=== PATIENT | male | born 1955 | race Caucasian/White ===

== ENCOUNTER → 2018-03-31 15:07 | Outpatient (CLI) | payer OTHER, SELFPAY ==
[2018-03-31 15:49] LABS: Appearance Urine UA CLEAR; Bilirubin Urine UA NEGATIVE (NEGATIVE); Color Urine UA YELLOW; Glucose Urine UA NEGATIVE (Normal); Ketones Urine UA NEGATIVE (NEGATIVE); Leukocyte Esterase Urine UA NEGATIVE (NEGATIVE); Nitrite Urine UA Negative (Negative); Occult Blood Urine UA TRACE-LYSED (Negative); Protein Urine UA NEGATIVE (Negative); Urobilinogen Urine UA 0.2 E.U./dL (0.2); pH Urine UA 5.5 (4.5-8.0)
[2018-03-31 15:56] LABS: RBC Urine 1-5/HPF (0-5/HPF); WBC Urine 5-10/HPF (0-5/HPF)
[2018-03-31 15:57] LABS: Bacteria Urine Many (>30); Culture Indicated Urine Specimen Cultured
== END ==
PROVIDERS: PCP Family Medicine; Visit Provider Physician Assistant
DX: R31.29 Other microscopic hematuria (principal)
CPT/HCPCS: 81001; 87086

== ENCOUNTER → 2018-05-27 15:41 | Outpatient (CLI) | payer OTHER, SELFPAY ==
[2018-05-27 15:48] LABS: Bacteria Urine None Seen; RBC Urine None Seen (0-5/HPF); WBC Urine None Seen (0-5/HPF)
[2018-05-27 15:54] LABS: Appearance Urine UA CLEAR; Bilirubin Urine UA NEGATIVE (NEGATIVE); Color Urine UA YELLOW; Glucose Urine UA NEGATIVE (Normal); Ketones Urine UA NEGATIVE (NEGATIVE); Leukocyte Esterase Urine UA NEGATIVE (NEGATIVE); Nitrite Urine UA Negative (Negative); Occult Blood Urine UA 1+ (Negative); Protein Urine UA NEGATIVE (Negative); Urobilinogen Urine UA 0.2 E.U./dL (0.2); pH Urine UA 5.5 (4.5-8.0)
[2018-05-27 16:01] LABS: Squamous Epithelial Cell Urine 0-1 /HPF
== END ==
PROVIDERS: PCP Family Medicine; Visit Provider Physician Assistant
DX: R31.9 Hematuria, unspecified (principal)
CPT/HCPCS: 81001

== ENCOUNTER → 2018-09-15 14:50 | Outpatient (CLI) | payer OTHER, SELFPAY ==
--- NOTE | 2018-09-15 | DI.ECHO.S_ITS ---
[place] [facility]---------+ [facility] +---------+ : : [address] : [address] : : : : [id number] : : : : Phone: [phone]---------+ Echocardiogram Report + + :Name: HANANE COBOS Study Date: 09/15/2018 Height: 74 in : :[facility] Weight: 260 lb : : Gender: Male BSA: 2.4 m2 : :: 1955 Age: 63 yrs BP: 150/84 mmHg: :Reason For Study: Aortic, Ascending Aneurysm : : Performed By: Glendy Mejía : :Referring: ZAINAB TURNER G : + + Interpretation Summary The ejection fraction is estimated to be 60-65%. The left atrium is moderately dilated. There is mild to moderate aortic regurgitation. There is a trace or physiologic amount of tricuspid regurgitation. The right ventricular systolic pressure is estimated to be at least 24 mmHg based on an estimated right atrial pressure of 3 mm Hg. The ascending aorta is moderately enlarged.(4.5cm, unchanged from 2016) The aortic root is mildly dilated. Procedure: A two-dimensional transthoracic echocardiogram with color flow and Doppler was performed. The study quality was technically adequate. Comparison is made with the echocardiogram of 06-15-16. The patient was in normal sinus rhythm during the exam. Left Ventricle: The left ventricle is mildly dilated. There is normal left ventricular wall thickness. The ejection fraction is estimated to be 60-65%. Left ventricular wall motion is normal. Diastolic parameters suggest a relaxation abnormality of the left ventricle, consistent with probable normal filling pressures. Right Ventricle: The right ventricle grossly appears normal in size with probable normal systolic function. Atria: The left atrium is moderately dilated. Right atrial size is normal. The interatrial septum is intact with no evidence for an atrial septal defect. Mitral Valve: The mitral valve is normal in structure and function. There is trace mitral regurgitation. Aortic Valve: The aortic valve opens well. The aortic valve is grossly normal. There is no aortic valve stenosis. There is mild to moderate aortic regurgitation. Tricuspid Valve: The tricuspid valve is normal in structure and function. There is a trace or physiologic amount of tricuspid regurgitation. The right ventricular systolic pressure is estimated to be at least 24 mmHg based on an estimated right atrial pressure of 3 mm Hg. Pulmonic Valve: The pulmonic valve is not well visualized. There is trace pulmonic regurgitation. Great Vessels: The aortic root is mildly dilated. The ascending aorta is moderately enlarged. There has been no significant change since the previous study. The IVC is of normal diameter and collapses greater than 50% with a sniff. This suggests a low right atrial pressure of 3 mm Hg. Pericardium/ Pleura There is no pericardial effusion. There is no pleural effusion. MMode/2D Measurements & Calculations LVIDd: 5.8 cm Ao root diam: 4.0 cm LVIDs: 3.7 cm Aortic Jxn: 3.7 cm FS: 34.9 % asc Aorta Diam: 4.4 cm EPSS: 1.4 cm Ao Arch Diam (Prox Trans): 3.6 cm IVSd: 0.99 cm LVPWd: 1.1 cm LV cruz. diameter/BSA (cm/m^2): 2.4 LV sys. diameter/BSA (cm/m^2): 1.5 LA dimension: 3.4 cm RA long axis: 6.4 cm LA A2 area: 33.5 cm2 RA area: 24.4 cm2 LA A4 area: 29.1 cm2 RA vol: 79.2 ml LA length (vol): 6.4 cm RA : 32.6 ml/m2 LA vol: 129.0 ml IVC diam: 1.2 cm LA vol index: 53.1 ml/m2 Doppler Measurements & Calculations Ao V2 max: 154.8 cm/sec AI P1/2t: 723.8 msec Ao V2 mean: 102.2 cm/sec AI dec slope: 187.1 cm/sec2 Ao max P.6 mmHg Ao mean P.8 mmHg Ao V2 VTI: 35.1 cm MV E max braeden: 68.0 cm/sec TR max braeden: 226.9 cm/sec MV A max braeden: 84.9 cm/sec TR max P.6 mmHg MV E/A: 0.80 PA V2 max: 75.4 cm/sec Med Peak E' Braeden: 5.1 cm/sec PA V2 mean: 51.8 cm/sec E/E' med: 13.5 PA mean P.2 mmHg Lat Peak E' Braeden: 8.5 cm/sec PA Accel Time: 0.18 sec E/E' lat: 8.0 E/e' average: 10.7 MV dec time: 0.28 sec MV P1/2t: 82.0 msec MV P1/2t max braeden: 67.6 cm/sec MVA(P1/2t): 2.7 cm2 Reading Physician:10:20 AM
== END ==
PROVIDERS: PCP Family Medicine; Visit Provider Family Medicine
DX: I71.2 Thoracic aortic aneurysm, without rupture (principal); I35.1 Nonrheumatic aortic (valve) insufficiency
CPT/HCPCS: 93306

== ENCOUNTER → 2019-08-08 06:49 | Outpatient (CLI) | payer OTHER, SELFPAY ==
[2019-08-08 08:42] LABS: Alanine Aminotransferase 25 IU/L (<50); Albumin Globulin Ratio 1.5 (1.0-2.8); Alkaline Phosphatase 43 U/L (38-126); Aspartate Aminotransferase 27 IU/L (17-59); BUN Creatinine Ratio 21.7 (6-22); Bilirubin Total 0.7 mg/dL (0.2-1.3); Blood Urea Nitrogen 26 mg/dL (9-20); Calcium 8.9 mg/dL (8.4-10.2); Carbon Dioxide 28 mmol/L (22-32); Chloride 104 mmol/L (98-107); Cholesterol 201 mg/dL (140-199); Estimated Glomerular Filt Rate > 60.0 mL/min (>60); Globulin 2.6 g/dL (1.7-4.1); Glucose 102 mg/dL (80-110); HDL Cholesterol 40 mg/dL (40-60); HEMOLYSIS < 15 (0-50); LDL Cholesterol Calculated 141 mg/dL (<100); Sodium 140 mmol/L (137-145); Total Protein 6.6 g/dL (6.3-8.2); Triglycerides 99 mg/dL (35-150)
[2019-08-08 08:49] LABS: Add Manual Diff / Slide Review NO; Basophils Absolute Auto 0 /uL (0-100); Basophils Percent Auto 0.9 % (0-2); Eosinophils Absolute Auto 200 /uL (0-450); Eosinophils Percent Auto 2.8 % (2-4); Hematocrit 48.6 % (41-53); Hemoglobin 16.6 g/dL (13.5-17.5); Lymphocytes Absolute Auto 1400 /uL (1100-4500); Lymphocytes Percent Auto 24.7 % (25-40); Mean Corpuscular HGB Conc 34.2 % (30-36); Mean Corpuscular Volume 96.5 fL (80-100); Monocytes Absolute Auto 500 /uL (0-900); Monocytes Percent Auto 8.6 % (3-14); Neutrophils Absolute Auto 3500 /uL (1500-7000); Platelet Count 208 X10^3/uL (150-400); Red Blood Cell Count 5.04 X10^6/uL (4.5-5.9); White Blood Cell Count 5.5 X10^3/uL (4.5-11.0)
[2019-08-08 09:09] LABS: TSH w/ Reflex to FT4 5.74 uIU/mL (0.47-4.68)
[2019-08-08 09:45] LABS: Free T4, Direct Thyroxine 0.81 ng/dL (0.78-2.19)
== END ==
PROVIDERS: PCP Family Medicine; Visit Provider Family Medicine
DX: I10 Essential (primary) hypertension (principal); E78.5 Hyperlipidemia, unspecified; J44.9 Chronic obstructive pulmonary disease, unspecified; R31.9 Hematuria, unspecified
CPT/HCPCS: 36415; 80053; 80061; 84439; 84443; 85025

== ENCOUNTER → 2019-09-07 09:04 | Outpatient (CLI) | payer OTHER, SELFPAY ==
--- NOTE | 2019-09-07 | DI.ECHO.S_ITS ---
[place] +---------+ [facility] +---------+ : : [address] : [address] : : : : [id number] : : : : Phone: [phone] +---------+ Echocardiogram Report + + :Name: HANANE COBOS Study Date: 09/07/2019 Height: 74 in : :[facility] Weight: 275 lb : : Gender: Male BSA: 2.5 m2 : :: 1955 Age: 64 yrs BP: 146/86 mmHg: :Reason For Study: Aortic, Ascending Aneurysm : : Performed By: [facility] [place] Staff : :Referring: ZAINAB TURNER G : + + Interpretation Summary 1) Normal left ventricular size with mildly reduced systolic function (EF 45- 50%). 2) The right ventricle is normal size. Right ventricular systolic function is mildly reduced. 3) The left atrium is moderately dilated. 4) There is mild to moderate aortic regurgitation. 5) The ascending aorta is moderately enlarged at 4.5cm. 6) Hypertension present during the study (BP 146/86mmHg). 7) Compared to the Echo done 09/15/2018, LV function has decreased from normal to mildly reduced on this study. Procedure: A two-dimensional transthoracic echocardiogram with color flow and Doppler was performed. The study quality was technically adequate. Prior echo performed on 09/15/18. The patient was in atrial fibrillation with heart rates between 115 bpm during the exam. Left Ventricle: The left ventricle is normal in size. There is mild concentric left ventricular hypertrophy. Left ventricular systolic function is mildly reduced. The ejection fraction is estimated to be 45-50%. Right Ventricle: The right ventricle is normal size. Right ventricular systolic function is mildly reduced. Atria: The left atrium is moderately dilated. The right atrium is mildly dilated. The interatrial septum is intact with no evidence for an atrial septal defect. Mitral Valve: The mitral valve leaflets appear mildly thickened, but open well. There is no mitral regurgitation noted. Aortic Valve: The aortic valve opens well. There is mild aortic valve sclerosis. The aortic valve is not well visualized. There is no aortic valve stenosis. There is mild to moderate aortic regurgitation. Tricuspid Valve: The tricuspid valve is normal in structure and function. There is trace tricuspid regurgitation. Pulmonary artery pressures cannot be estimated because of the lack of a measurable TR jet velocity. Pulmonic Valve: The pulmonic valve is not well visualized. There is trace pulmonic regurgitation. Great Vessels: The aortic root is mildly dilated. The ascending aorta is moderately enlarged. The pulmonary artery is normal size. The IVC is dilated (diameter is greater than 2.1 cm) yet it collapses greater than 50% with a sniff. This suggests a right atrial pressure of 8 mm Hg. Pericardium/ Pleura There is no pericardial effusion. There is no pleural effusion. MMode/2D Measurements & Calculations LVIDd: 4.7 cm LVOT diam: 2.4 cm LVIDs: 3.1 cm Ao root diam: 3.9 cm FS: 33.9 % EPSS: 0.83 cm IVSd: 1.4 cm LVPWd: 1.3 cm LV cruz. diameter/BSA (cm/m^2): 1.9 LV sys. diameter/BSA (cm/m^2): 1.2 LA A2 area: 26.7 cm2 RA long axis: 6.7 cm LA A4 area: 36.0 cm2 RA area: 23.3 cm2 LA length (vol): 7.0 cm RA vol: 69.0 ml LA vol: 117.0 ml RA : 27.7 ml/m2 LA vol index: 47.0 ml/m2 TAPSE: 1.8 cm Doppler Measurements & Calculations Ao V2 max: 101.4 cm/sec LVOT Max Braeden: 71.6 cm/sec Ao V2 mean: 71.5 cm/sec LV V1 max P.1 mmHg Ao max P.1 mmHg LV V1 VTI: 15.7 cm Ao mean P.4 mmHg YRN(I,D): 3.6 cm2 Ao V2 VTI: 19.0 cm YRN(V,D): 3.1 cm2 sev ratio: 0.82 YRN indexed to BSA (cm^2/m^2): 1.5 MV E max braeden: 65.1 cm/sec PA V2 max: 41.9 cm/sec Med Peak E' Braeden: 6.6 cm/sec PA V2 mean: 30.8 cm/sec E/E' med: 9.9 PA mean P.43 mmHg Lat Peak E' Braeden: 9.7 cm/sec PA Accel Time: 0.12 sec E/E' lat: 6.7 E/e' average: 8.3 SV(LVOT): 69.4 ml Reading Physician:09:18 AM
== END ==
PROVIDERS: Family Provider Internal Medicine Cardiovascular Disease; PCP Family Medicine; Visit Provider Family Medicine
DX: I35.1 Nonrheumatic aortic (valve) insufficiency (principal); I71.2 Thoracic aortic aneurysm, without rupture; I10 Essential (primary) hypertension
CPT/HCPCS: 93306

== ENCOUNTER 2019-09-17 | Observation (INO) | payer OTHER, SELFPAY ==
[2019-09-17] VITALS (25 sets, daily range): BP systolic 120–152; BP diastolic 74–112; PULSE 94–150; RESP 13–27; TEMP 36.4–38.1; O2SAT 89–95; BMI 35.5
--- NOTE | 2019-09-17 00:16 | DI.RAD.S_ITS ---
PROCEDURE: XR CHEST 1V INDICATIONS: Shortness of breath TECHNIQUE: One view of the chest was acquired. COMPARISON: None. FINDINGS: Surgical changes and devices: None. Lungs and pleura: Lungs are clear. No pleural effusions or pneumothorax. Mediastinum: Mediastinal contours appear normal. Heart size is normal. Bones and chest wall: No suspicious bony lesions. Overlying soft tissues appear unremarkable. IMPRESSION: No acute cardiopulmonary findings. Dictated by: Elif Hill M.D. on 09/17/2019 at 6:42 Approved by: Elif Hill M.D. on 09/17/2019 at 6:42
--- NOTE | 2019-09-17 00:17 | ED.GENADULT ---
HPI - General Adult General Chief complaint: Shortness of Breath/Dyspnea Stated complaint: difficulty breathing Time Seen by Provider: 09/17/19 00:01 Source: patient and family Mode of arrival: Family Vehicle Limitations: no limitations History of Present Illness HPI narrative: Patient is a 64-year-old male. Approximately 1 month ago was diagnosed with atrial fibrillation. He is not currently on anticoagulation for this. Is not currently on any rate/rhythm control medications. Earlier this month he had an echocardiogram performed here at this hospital for the evaluation of this. Yesterday he also finished a 24 hour Holter monitor. He does not have the results of this back. 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 He states that 2 days ago started having ?the cried ?this is what he describes as sore throat and sinus congestion not feeling well. He states that this evening he was laying in bed when he had to sit up with shortness of breath. No chest pain. Does not feel like his heart is beating fast. He does not feel his atrial fibrillation. Does have lower extremity swelling with this is not new. No nausea vomiting. No abdominal pain. Has not tried anything for symptoms prior to arrival. Related Data Home Medications Medication Instructions Recorded Confirmed acetaminophen [Acephen] #0 07/31/16 aspirin 81 mg PO QDAY #0 07/31/16 carvedilol [Coreg] 25 mg PO BID #0 07/31/16 cetirizine 10 mg PO QDAY #0 07/31/16 felodipine 10 mg PO QDAY #0 07/31/16 fluticasone propionate 1 spray QDAY #0 07/31/16 lisinopril 40 mg PO QDAY #0 07/31/16 Allergies Allergy/AdvReac Type Severity Reaction Status Date / Time No Known Drug Allergies Allergy Verified 09/17/19 00:32 Review of Systems Constitutional Constitutional: Reports fatigue and Denies fever(s) Cardiovascular Cardiovascular: Denies chest pain, Denies diaphoresis, Denies syncope, Denies rapid heart rate, Denies irregular heart rhythm, Reports leg edema and Reports dyspnea Respiratory Respiratory: Reports chest congestion, Reports cough and Reports dyspnea Gastrointestinal Gastrointestinal: Denies abdominal pain, Denies nausea and Denies vomiting Genitourinary Genitourinary: Denies dysuria Musculoskeletal Musculoskeletal: Denies arthralgias Integumentary/Breasts Skin/Breast: Denies rash Neurologic Neurologic: Denies behavioral changes and Denies syncope Psychiatric Psychiatric: Denies behavioral changes Endocrine Endocrine: Reports fatigue Hematologic/Lymphatic Hematologic/Lymphatic: Denies easy bleeding and Denies easy bruising Patient History Medical History Atrial fibrillation (Acute) Hypertension (Acute) Renal cancer (Acute) Surgical History History of nephrectomy (Acute) Social History Smoking Status: Former smoker Smoking Status: Former smoker alcohol intake frequency: 3 or more drinks per day Alcohol type: beer Substance Use Type: does not use Exam Initial Vital Signs Initial Vital Signs: Vital Signs Temperature 99.9 F H 09/17/19 00:08 Pulse Rate 138 H 09/17/19 00:08 Respiratory Rate 24 09/17/19 00:08 Blood Pressure 152/112 H 09/17/19 00:08 Pulse Oximetry 91 09/17/19 00:08 Const General: cooperative, comfortable and well developed Orientation: alert, awake and oriented x3 HENMT Head: normal to inspection and normocephalic Resp Effort & Inspection: normal respiratory effort, cough, not labored and tachypneic Auscultation: wheezes Cardio Rate: tachycardic Rhythm: abnormal rhythm irregularly irregular GI Inspection: non-distended Palpation: soft Skin Lesions: no lesions Rashes: no rashes Neuro General: alert, awake and oriented x3 Cognition: normal cognition Speech: speech normal Extrem General: normal to inspection and capillary refill normal Psych Appearance: grossly normal and well kempt Scores CHADS-VASc Congestive heart failure: yes Hypertension: yes Age 75 years or older: no Diabetes mellitus: no Stroke, TIA, or TE: no Vascular disease: no Age 65 to 74 years: no Sex category (female): Male CHADS-VASc Score: 2 GCS [place] coma scale eye opening: Spontaneous Stacie coma scale verbal response: Orientated Stacie coma scale motor response: Obey commands [place] coma scale total score: 15 PERC Score Age greater than or equal to 50 years: Yes Heart rate greater than or equal to 100 bpm: Yes Room Air O2 Sat less than 95%: Yes Unilateral leg swelling: No Recent trauma or surgery: No Hemoptysis: No Prior PE or DVT: No Hormone Use: No Total PERC Score: 3 Course Orders Ordered: ED Orders 09/17/19 00:15 B Type Natriuretic Peptide Stat Complete Blood Count AUTO DIFF Stat Comprehensive Metabolic Panel Stat Lipase Stat Partial Thromboplastin Time Stat Procalcitonin Stat Prothrombin Time INR Stat Troponin I Stat 09/17/19 00:16 XR chest 1V Stat EKG-12 Lead Stat 09/17/19 00:28 Influenza A & B (PCR) Stat 09/17/19 01:42 CT angio chest PE protocol Stat Sodium Chloride (Normal Saline 0.9%) 1,000 mls @ 150 mls/hr IV CONT KAYLA Last Admin: 09/17/19 00:49 Dose: 150 mls/hr Documented by: SABINA Discontinued Medications Albuterol (Ventolin) 2.5 mg INH NOW ONE Stop: 09/17/19 00:25 Last Admin: 09/17/19 00:32 Dose: 2.5 mg Documented by: GEMMA Albuterol (Ventolin) 2.5 mg INH NOW ONE Stop: 09/17/19 00:45 Last Admin: 09/17/19 00:53 Dose: 2.5 mg Documented by: GEMMA Albuterol (Ventolin) 2.5 mg INH NOW ONE Stop: 09/17/19 01:14 Last Admin: 09/17/19 01:16 Dose: 2.5 mg Documented by: GEMMA Azithromycin (Zithromax) 500 mg PO NOW ONE Stop: 09/17/19 01:14 Last Admin: 09/17/19 01:19 Dose: 500 mg Documented by: SABINA Diltiazem HCl (Cardizem) 10 mg IV NOW ONE Stop: 09/17/19 00:38 Last Admin: 09/17/19 00:49 Dose: 10 mg Documented by: SABINA Methylprednisolone (Solu-Medrol 125 Mg Vial) 125 mg IV NOW ONE Stop: 09/17/19 01:14 Last Admin: 09/17/19 01:19 Dose: 125 mg Documented by: SABINA Vital Signs Vital signs: Vital Signs - 8 hr 09/17/19 00:08 09/17/19 00:30 09/17/19 00:32 Temperature 99.9 F H Pulse Rate 138 H 139 H 150 H Respiratory Rate 24 22 20 Blood Pressure 152/112 H Blood Pressure [Right Arm] 142/102 H Pulse Oximetry 91 93 93 09/17/19 00:53 09/17/19 00:57 09/17/19 01:01 Temperature Pulse Rate 120 H 105 H 98 H Respiratory Rate 20 13 Blood Pressure Blood Pressure [Right Arm] 138/85 Pulse Oximetry 93 92 09/17/19 01:16 09/17/19 03:03 09/17/19 03:06 Temperature Pulse Rate 104 H 132 H 123 H Respiratory Rate 16 16 16 Blood Pressure Blood Pressure [Right Arm] 138/88 138/88 Pulse Oximetry 94 90 L 89 L 09/17/19 03:38 09/17/19 04:12 Temperature Pulse Rate 122 H 120 H Respiratory Rate 27 H 24 Blood Pressure Blood Pressure [Right Arm] 137/93 H 137/92 H Pulse Oximetry 93 91 Medical Decision Making Medical Records Medical records reviewed: Yes I reviewed the patient's medical records. Lab Data Lab results reviewed: Yes I reviewed the patient's lab results. Result diagrams: 09/17/19 00:15 09/17/19 00:15 Labs: Lab Results 09/17/19 09/17/19 09/17/19 Range/Units 00:15 00:15 00:15 WBC 5.9 (4.5-11.0) X10^3/uL RBC 5.41 (4.5-5.9) X10^6/uL Hgb 17.9 H (13.5-17.5) g/dL Hct 52.0 (41-53) % MCV 96.2 (80-100) fL MCH 33.1 (26-34) PG MCHC 34.4 (30-36) % RDW 13.9 (11.6-14.8) % Plt Count 173 (150-400) X10^3/uL Neut % (Auto) 80.2 H (50-75) % Lymph % (Auto) 8.8 L (25-40) % Crenshaw % (Auto) 5.4 (3-14) % Eos % (Auto) 3.3 (2-4) % Baso % (Auto) 2.3 H (0-2) % Neut # (Auto) 4700 (9320-6409) /uL Lymph # (Auto) 500 L (3695-4066) /uL Crenshaw # (Auto) 300 (0-900) /uL Eos # (Auto) 200 (0-450) /uL Baso # (Auto) 100 (0-100) /uL PT 12.1 (10.1-12.7) SECONDS INR 1.0 (0.9-1.3) APTT 40 H (26.4-36.2) SECONDS Sodium 138 (137-145) mmol/L Potassium 3.7 (3.4-5.1) mmol/L Chloride 99 (98-107) mmol/L Carbon Dioxide 25 (22-32) mmol/L BUN 19 (9-20) mg/dL Creatinine 1.30 H (0.66-1.25) mg/dL Estimated GFR 55.9 L (>60) mL/min BUN/Creatinine Ratio 14.6 (6-22) Glucose 101 (80-110) mg/dL Calcium 9.2 (8.4-10.2) mg/dL Total Bilirubin 0.9 (0.2-1.3) mg/dL AST 69 H (17-59) IU/L ALT 53 H (<50) IU/L Alkaline Phosphatase 65 (38-126) U/L Troponin I < 0.012 (0.01-0.034) ng/mL B-Natriuretic Peptide 175 H (<100) Total Protein 8.2 (6.3-8.2) g/dL Albumin 4.8 (3.5-5.0) g/dL Globulin 3.4 (1.7-4.1) g/dL Albumin/Globulin Ratio 1.4 (1.0-2.8) Lipase 49 (23-300) U/L Procalcitonin (<0.5) ng/mL Influenza A (RT-PCR) (NEGATIVE) Influenza B (RT-PCR) (NEGATIVE) 09/17/19 09/17/19 Range/Units 00:15 00:28 WBC (4.5-11.0) X10^3/uL RBC (4.5-5.9) X10^6/uL Hgb (13.5-17.5) g/dL Hct (41-53) % MCV (80-100) fL MCH (26-34) PG MCHC (30-36) % RDW (11.6-14.8) % Plt Count (150-400) X10^3/uL Neut % (Auto) (50-75) % Lymph % (Auto) (25-40) % Crenshaw % (Auto) (3-14) % Eos % (Auto) (2-4) % Baso % (Auto) (0-2) % Neut # (Auto) (4770-9609) /uL Lymph # (Auto) (5964-9618) /uL Crenshaw # (Auto) (0-900) /uL Eos # (Auto) (0-450) /uL Baso # (Auto) (0-100) /uL PT (10.1-12.7) SECONDS INR (0.9-1.3) APTT (26.4-36.2) SECONDS Sodium (137-145) mmol/L Potassium (3.4-5.1) mmol/L Chloride (98-107) mmol/L Carbon Dioxide (22-32) mmol/L BUN (9-20) mg/dL Creatinine (0.66-1.25) mg/dL Estimated GFR (>60) mL/min BUN/Creatinine Ratio (6-22) Glucose (80-110) mg/dL Calcium (8.4-10.2) mg/dL Total Bilirubin (0.2-1.3) mg/dL AST (17-59) IU/L ALT (<50) IU/L Alkaline Phosphatase (38-126) U/L Troponin I (0.01-0.034) ng/mL B-Natriuretic Peptide (<100) Total Protein (6.3-8.2) g/dL Albumin (3.5-5.0) g/dL Globulin (1.7-4.1) g/dL Albumin/Globulin Ratio (1.0-2.8) Lipase (23-300) U/L Procalcitonin < 0.05 (<0.5) ng/mL Influenza A (RT-PCR) Flu a negative (NEGATIVE) Influenza B (RT-PCR) Flu b negative (NEGATIVE) Imaging Data Echo: Radiologist's impression: [address] [address] Echocardiography Report Signed Patient: Hanane Cobos WMR#: [id number] : 7Acct:[id number] Age/Sex: 64 / MDate of Service: 09/07/19 Loc: ECHO Accession Number: [id number] Procedure: EC echo doppler complete Ordering Provider: Zainab Turner [facility] +---------+ Hospital +---------+ : : [address] : [place] [address] : : : : [id number] : : : : Phone: [phone]+ Echocardiogram Report + + :Name: HANANE COBOS Study Date: 09/07/2019 Height: 74 in : :[facility] Weight: 275 lb : : Gender: Male BSA: 2.5 m2 : :: 1955 Age: 64 yrs BP: 146/86 mmHg: :Reason For Study: Aortic, Ascending Aneurysm : : Performed By: [facility] Staff : :Referring: ZAINAB TURNER : + + Interpretation Summary 1) Normal left ventricular size with mildly reduced systolic function (EF 45- 50%). 2) The right ventricle is normal size. Right ventricular systolic function is mildly reduced. 3) The left atrium is moderately dilated. 4) There is mild to moderate aortic regurgitation. 5) The ascending aorta is moderately enlarged at 4.5cm. 6) Hypertension present during the study (BP 146/86mmHg). 7) Compared to the Echo done 09/15/2018, LV function has decreased from normal to mildly reduced on this study. Procedure: A two-dimensional transthoracic echocardiogram with color flow and Doppler was performed. The study quality was technically adequate. Prior echo performed on 09/15/18. The patient was in atrial fibrillation with heart rates between 115 bpm during the exam. Left Ventricle: The left ventricle is normal in size. There is mild concentric left ventricular hypertrophy. Left ventricular systolic function is mildly reduced. The ejection fraction is estimated to be 45-50%. Right Ventricle: The right ventricle is normal size. Right ventricular systolic function is mildly reduced. Atria: The left atrium is moderately dilated. The right atrium is mildly dilated. The interatrial septum is intact with no evidence for an atrial septal defect. Mitral Valve: The mitral valve leaflets appear mildly thickened, but open well. There is no mitral regurgitation noted. Aortic Valve: The aortic valve opens well. There is mild aortic valve sclerosis. The aortic valve is not well visualized. There is no aortic valve stenosis. There is mild to moderate aortic regurgitation. Tricuspid Valve: The tricuspid valve is normal in structure and function. There is trace tricuspid regurgitation. Pulmonary artery pressures cannot be estimated because of the lack of a measurable TR jet velocity. Pulmonic Valve: The pulmonic valve is not well visualized. There is trace pulmonic regurgitation. Great Vessels: The aortic root is mildly dilated. The ascending aorta is moderately enlarged. The pulmonary artery is normal size. The IVC is dilated (diameter is greater than 2.1 cm) yet it collapses greater than 50% with a sniff. This suggests a right atrial pressure of 8 mm Hg. Pericardium/ Pleura There is no pericardial effusion. There is no pleural effusion. MMode/2D Measurements & Calculations LVIDd: 4.7 cm LVOT diam: 2.4 cm LVIDs: 3.1 cm Ao root diam: 3.9 cm FS: 33.9 % EPSS: 0.83 cm IVSd: 1.4 cm LVPWd: 1.3 cm LV cruz. diameter/BSA (cm/m^2): 1.9 LV sys. diameter/BSA (cm/m^2): 1.2 LA A2 area: 26.7 cm2 RA long axis: 6.7 cm LA A4 area: 36.0 cm2 RA area: 23.3 cm2 LA length (vol): 7.0 cm RA vol: 69.0 ml LA vol: 117.0 ml RA : 27.7 ml/m2 LA vol index: 47.0 ml/m2 TAPSE: 1.8 cm Doppler Measurements & Calculations Ao V2 max: 101.4 cm/sec LVOT Max Braeden: 71.6 cm/sec Ao V2 mean: 71.5 cm/sec LV V1 max P.1 mmHg Ao max P.1 mmHg LV V1 VTI: 15.7 cm Ao mean P.4 mmHg YRN(I,D): 3.6 cm2 Ao V2 VTI: 19.0 cm YRN(V,D): 3.1 cm2 sev ratio: 0.82 YRN indexed to BSA (cm^2/m^2): 1.5 MV E max braeden: 65.1 cm/sec PA V2 max: 41.9 cm/sec Med Peak E' Braeden: 6.6 cm/sec PA V2 mean: 30.8 cm/sec E/E' med: 9.9 PA mean P.43 mmHg Lat Peak E' Braeden: 9.7 cm/sec PA Accel Time: 0.12 sec E/E' lat: 6.7 E/e' average: 8.3 SV(LVOT): 69.4 ml Reading Physician:09:18 AM Chest x-ray: Radiologist's impression: Ground-glass intra pulmonary opacifications centered within the bilateral perihilar airspace is. Mild emphysematous changes. Alveolitis versus subsegmental atelectasis CT scan - chest: Radiologist's impression: Despite exam quality take radiation, there is no evidence for gross pulmonary embolism that is likely to be clinically significant. Ascending aortic aneurysm. No evidence of rupture. Nonspecific intrapulmonary airspace disease. Likely pneumonia versus edema. ECG Data Attestation: I personally reviewed and interpreted this ECG as follows: Prior ECG tracings: not available for review Interpretation: Atrial fibrillation Ventricular rate of 134 Normal axis QRS 153 milliseconds Right bundle branch block No ST T wave changes MDM Narrative Medical decision making narrative: Patient arrived hypoxic in the mid 80s. This improved with oxygen by nasal cannula. He did have wheezing and coarse breath sounds bilaterally. Was given multiple nebulizer treatments which did seem to improve his symptoms however when he was taken off his oxygen just laying in bed his saturations dropped to the mid 80s. He was given steroids. Given his symptoms, cough, fatigue, hypoxia, there was some concern for pneumonia. He was given azithromycin. He does not meet criteria for healthcare associated. Chest x-ray did not show any definitive pneumonia. Given the fact the patient was still hypoxic despite nebulizer treatments felt was important to obtain a CTA to evaluate for any pulmonary embolism. There's no pulmonary embolism however does have a right middle lobe airspace disease which could potentially represent a pneumonia. This is however the setting of a lack of leukocytosis, lack of a fever, lack of an elevation is procalcitonin. He does not carry a diagnosis of COPD. Patient was also in atrial fibrillation with RVR upon arrival. He was diagnosed with this approximately 1 month ago. The echocardiogram provided in this note is for reference purposes only. It was not obtained during this ED visit. He was given Cardizem which did improve his heart rate however after a period of time and did rise again maintaining in the 120s. I did discuss the case with Dr. 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 He recommended that if the heart rate stayed in the 120s or less that he would treat the underlying lung issues to see if this does not improve his atrial fibrillation. I discussed the case with the night nurse practitioner who accepts the patient for further evaluation. Discussed the admission and the findings of his labs and radiologic studies with the patient and his . They both expressed understanding and agreement. Discharge Plan Departure Patient Disposition: Admitted as Observation Clinical Impression: Hypoxia Reactive airway disease Qualifiers: Asthma severity: mild Asthma persistence: unspecified Qualified Code(s): J45.909 - Unspecified asthma, uncomplicated Atrial fibrillation Qualifiers: Atrial fibrillation type: other persistent Qualified Code(s): I48.19 - Other persistent atrial fibrillation Admit Date/Time: 09/17/19 04:30 Admit Provider: Stefan Emery
[2019-09-17] MEDS: ALBUTEROL 2.5 MG/3 ML NEB (ADULT) INH ×3 (00:32→01:16)
[2019-09-17 00:33] LABS: Prothrombin Time 12.1 SECONDS (10.1-12.7)
[2019-09-17 00:36] LABS: PTT Partial Thromboplastin Tim 40 SECONDS (26.4-36.2)
[2019-09-17 00:39] LABS: Alanine Aminotransferase 53 IU/L (<50); Albumin 4.8 g/dL (3.5-5.0); Albumin Globulin Ratio 1.4 (1.0-2.8); Alkaline Phosphatase 65 U/L (38-126); Aspartate Aminotransferase 69 IU/L (17-59); BUN Creatinine Ratio 14.6 (6-22); Bilirubin Total 0.9 mg/dL (0.2-1.3); Blood Urea Nitrogen 19 mg/dL (9-20); Calcium 9.2 mg/dL (8.4-10.2); Carbon Dioxide 25 mmol/L (22-32); Chloride 99 mmol/L (98-107); Estimated Glomerular Filt Rate 55.9 mL/min (>60); Globulin 3.4 g/dL (1.7-4.1); Glucose 101 mg/dL (80-110); HEMOLYSIS < 15 (0-50); Lipase 49 U/L (23-300); Potassium 3.7 mmol/L (3.4-5.1); Sodium 138 mmol/L (137-145); Total Protein 8.2 g/dL (6.3-8.2)
[2019-09-17 00:43] LABS: Add Manual Diff / Slide Review NO; Basophils Absolute Auto 100 /uL (0-100); Basophils Percent Auto 2.3 % (0-2); Eosinophils Absolute Auto 200 /uL (0-450); Eosinophils Percent Auto 3.3 % (2-4); Hemoglobin 17.9 g/dL (13.5-17.5); Lymphocytes Absolute Auto 500 /uL (1100-4500); Lymphocytes Percent Auto 8.8 % (25-40); Mean Corpuscular HGB Conc 34.4 % (30-36); Mean Corpuscular Hemoglobin 33.1 PG (26-34); Mean Corpuscular Volume 96.2 fL (80-100); Monocytes Absolute Auto 300 /uL (0-900); Monocytes Percent Auto 5.4 % (3-14); Neutrophils Absolute Auto 4700 /uL (1500-7000); Neutrophils Percent Auto 80.2 % (50-75); Platelet Count 173 X10^3/uL (150-400); Red Blood Cell Count 5.41 X10^6/uL (4.5-5.9); Red Cell Distribution Width 13.9 % (11.6-14.8); White Blood Cell Count 5.9 X10^3/uL (4.5-11.0)
[2019-09-17] MEDS: dilTIAZem 5 MG/ML SDV 10 MG IV (00:49)
[2019-09-17] MEDS: SODIUM CHLORIDE 0.9% 1,000 ML 150 ML IV (00:49)
[2019-09-17 00:51] LABS: B Type Natriuretic Peptide 175 (<100); Troponin I < 0.012 ng/mL (0.01-0.034)
[2019-09-17 00:54] LABS: Procalcitonin < 0.05 ng/mL (<0.5)
--- NOTE | 2019-09-17 01:03 | PC.NURSE ---
Pt remains in a figb HR 90's-100's after IVP diltiazem
[2019-09-17 01:04] LABS: Influenza A - CEPHEID Flu A NEGATIVE (NEGATIVE); Influenza B - CEPHEID Flu B NEGATIVE (NEGATIVE)
[2019-09-17] MEDS: AZITHROMYCIN 250 MG TABLET 500 MG PO (01:19)
[2019-09-17] MEDS: methylPREDNISolone 125 MG/2 ML VIAL IV (01:19)
--- NOTE | 2019-09-17 01:28 | PC.NURSE ---
Pt reports he feels better after nebs.
--- NOTE | 2019-09-17 01:42 | DI.CT.S_ITS ---
PROCEDURE: CT ANGIO CHEST PE PROTOCOL INDICATIONS: Chest pain, shortness of breath, tachycardia TECHNIQUE: After the administration of intravenous contrast, 2 mm thick sections acquired from the pulmonary apices to the posterior costophrenic angles. 3-dimensional maximum intensity projection (MIP) coronal and sagittal reformats were then acquired through the thorax. For radiation dose reduction, the following was used: automated exposure control, adjustment of mA and/or kV according to patient size. COMPARISON: None. FINDINGS: Image quality: Excellent. Pulmonary arteries: Pulmonary arteries are normal in size, and demonstrate no intraluminal filling defects to suggest central pulmonary embolism. Lungs and pleura: Patchy pulmonary opacities are present within the right middle lobe. Trace pulmonary opacities are also present at the lingular base. There is soft tissue thickening around the right middle lobe bronchi. There is a 7 mm diameter pulmonary nodule within the right lower lobe (series 6, image 253). A 5 mm right lower lobe pulmonary nodule is also visualized (series 6, image 277). An 8mm pulmonary nodule is present within the lateral right lower lobe (series 6, image to 34). An 8mm pulmonary nodule is present within the left lower lobe (series 6, image to 68). A questionable nodule versus pulmonary scar or basilar atelectasis is present at the lateral left lung base measuring 1.0 cm in diameter (series 6, image 304). Mediastinum: Heart size is normal, without pericardial effusion. No mediastinal or hilar adenopathy. The ascending thoracic aorta measures 4.6 cm in diameter. Esophagus is normal in caliber, without hiatal hernia. Bones and chest wall: No suspicious bony lesions. Ribs and thoracic spine appear intact throughout. Thyroid gland is unremarkable. No axillary or supraclavicular adenopathy. Abdomen: Visualized upper abdominal solid organs appear normal in the early arterial phase of enhancement. IMPRESSION: 1. No acute pulmonary embolus. 2. Patchy air space opacity suspicious for acute aspiration/infection. Short interval followup is recommended with resolution of the patient's symptoms to ensure there is no underlying pulmonary pathology. 3. Multiple pulmonary nodules measuring up to 9-10 mm in diameter. Please see followup guidelines below. Followup CT in 3-6 months recommended. 4. Annuloaortic ectasia. Nonemergent cardiology consultation recommended. These findings are concordant with the overnight interpretation. Fleischner Society criteria for SOLID lung nodule followup. Nodule size (mm)Low-risk patientHigh-risk patient<6 (single or multiple)No routine followup.Optional CT at 12 months. 6-8 (single or multiple)CT at 6-12 months, then optional CT at 18-24 mo.CT at 6-12 months, then CT at 18-24 months. >8 (single)CT at 3 months, PET-CT, or biopsy. Same as for low-risk pts. >8 (multiple)CT at 3-6 months, then optional CT at 18-24 mo.CT at 3-6 months, then CT at 18-24 months. Fleischner Society criteria for SUB-SOLID lung nodule followup. Solitary pure ground-glass nodules<6 mm (ground glass or part solid)No followup needed. 6 mm or larger (ground glass)CT at 6-12 months to confirm persistence, then CT every 2 years until 5 years.6 mm or larger (part solid)CT at 3-6 months to confirm persistence, then annual CT until 5 years if unchanged and solid component remains <6 mm. Multiple sub-solid nodules<6 mmCT at 3-6 months, then CT consider at 2 & 4 years for high risk patients. [address] at 3-6 months. Subsequent management based on most suspicious lesions. Recommendations do not apply to lung cancer screening, patients with immunosuppression, or patients with known primary cancer. Dictated by: Elif Hill M.D. on 09/17/2019 at 6:49 Approved by: Elif Hill M.D. on 09/17/2019 at 7:07
[2019-09-17] MEDS: ASPIRIN 81 MG CHEW TAB PO (07:36)
[2019-09-17] MEDS: HEPARIN 5,000 UNIT/ML VIAL 5000 UNIT SUBCUT ×2 (07:36→20:40)
[2019-09-17] MEDS: LISINOPRIL 20 MG TABLET 40 MG PO (07:36)
[2019-09-17] MEDS: carvediloL 25 MG TABLET PO (07:36)
[2019-09-17] MEDS: METOPROLOL TARTRATE 5 MG/5 ML INJ IV ×3 (08:30→10:16)
[2019-09-17] MEDS: ALBUTEROL/IPRATROPIUM 3 ML AMPUL INH ×5 (08:45→23:05)
--- NOTE | 2019-09-17 11:05 | PC.NURSE ---
Addendum entered by Anabella Larsen R.N. 09/17/19 14:03: Pt received scheduled metoprolol PO per emar, HR remaining in the 100-128 bpm range with occ. increases to 130s (unsustained). Dr. Beltran updated and order obtained for IV metoprolol prn if HR sustains over 120s bpm. Pt denies any chest pain, SOB, dizziness at this time. Original Note: PATIENT OFFERS NO COMPLAINTS. DENIES SOB AT THIS TIME. 94% ON 2L/NC. LUNGS CLEAR. INTERMITT PRODUCTIVE COUGH. FACIAL FLUSHING. MD WAS NOTIFIED OF AFIB RVR 120'S TO 130'S BY FLOAT NURSE, ANABELLA THIS AM. NEW ORDERS PER MD. SEE EMAR. HR NOW MOSTLY 100'S WITH OCCASIONAL JUMPS INTO 120'S BUT NOT SUSTAINED. ANABELLA TAKING OVER CARE, REPORT GIVEN.
--- NOTE | 2019-09-17 11:57 | P.HP_ITS ---
History of Present Illness History of Present Illness Date Patient Seen: 09/17/19 Chief complaint: difficulty breathing Narrative: Patient is a 64-year-old male with a history of atrial fibrillation, hypertension the patient is a 64-year-old male with a history of atrial fibrillation, hypertension, obstructive sleep apnea remote history of renal cancer and a history of COPD who was in his usual state of health until 3 days prior to admission. Patient states he came down with a ?cried. He describes having a cough, shortness of breath, wheezing, and difficulty sleeping. Patient states that last night he developed significant coughing shortness of breath such that he could not catch his breath. He has been under the care of a lunchroom attendant and had an echocardiogram which showed a mil dly reduced ejection fraction of 40-45%, a Holter monitor which confirmed atrial fibrillation. His Coreg was increased to 37.5. Patient turned in his Holter monitor recently as well. In any event the patient presented to the hospital with increasing shortness of breath. He was noted to be hypoxic. He was taken for CT angio to rule out pulmonary embolus. CT angio was negative for PE, there was some streaking suggestive of possible aspiration or pneumonia. And pulmonary nodules which were felt to be old. Patient had influenza a and B which were negative. He was started empirically on azithromycin and admitted to the hospital for treatment. Since admission the patient has been noted to remain in atrial fibrillation, his heart rate has been in the 120s. The patient is anxious to discharge home. Patient History Medical History (Updated 09/17/19 @ 12:03 by Poornima Beltran MD) Atrial fibrillation (Acute) Hypertension (Acute) Obstructive sleep apnea (Acute) Renal cancer (Acute) Surgical History History of nephrectomy (Acute) Family & Social History Family History (Updated 09/17/19 @ 12:04 by Poornima Beltran MD) Mother Atrial fibrillation Daughter Supraventricular tachycardia Social History: household members spouse Prior Living Arrangements House Safety & Behavioral: Feels Safe in Current Yes Environment Been Physically Hurt or No Threatened By a Person Suicidal Ideation Description None Suicide Plan Description No Plan Tobacco & Substance use: Tobacco type cigarettes Smoking Status Former smoker Smoking packs per day 2 alcohol intake frequency 3 or more drinks per day Substance Use Type does not use Meds Home Medications and Allergies Home Medications Medication Instructions Recorded Confirmed Type aspirin 81 mg PO QDAY #0 07/31/16 09/17/19 History carvedilol [Coreg] 37.5 mg PO BID #0 07/31/16 09/17/19 History cetirizine 10 mg PO QDAY #0 07/31/16 09/17/19 History felodipine 10 mg PO QDAY #0 07/31/16 09/17/19 History lisinopril 40 mg PO QDAY #0 07/31/16 09/17/19 History acetaminophen [Tylenol] 650 mg PO Q4-6H PRN 09/17/19 09/17/19 History cholecalciferol (vitamin D3) 2,000 unit PO DAILY 09/17/19 09/17/19 History [Vitamin D3] hydrochlorothiazide 12.5 mg PO DAILY 09/17/19 09/17/19 History Allergies Allergy/AdvReac Type Severity Reaction Status Date / Time No Known Drug Allergies Allergy Verified 09/17/19 00:32 Review of Systems Review of Systems Narrative: The patient describes shortness of breath cough and wheezing is noted in the HPI. He also reports some orthopnea and pedal edema. He denies any palpitations. He has no headache blurred vision or double vision. He denies any joint pains or rashes. He has not had a productive cough. He has had no hemoptysis. He denies any chest pain. He does not have any palpitations. He has had no dysuria hematuria or pyuria. No nausea vomiting or diarrhea. All other review of systems are negative. Exam Vital Signs (past 8 hours): - 09/17/19 04:12 09/17/19 05:23 09/17/19 07:40 Temperature 100.5 F H 98.6 F Pulse Rate 120 H 117 H 124 H Respiratory Rate 24 18 18 Blood Pressure 123/74 134/82 Blood Pressure [Right Arm] 137/92 H Pulse Oximetry 91 92 94 09/17/19 09:03 09/17/19 09:47 09/17/19 10:09 Temperature Pulse Rate 124 H 111 H 118 H Respiratory Rate 18 Blood Pressure 120/90 124/79 Blood Pressure [Right Arm] Pulse Oximetry 93 93 09/17/19 10:15 09/17/19 10:25 Temperature Pulse Rate 112 H 110 H Respiratory Rate Blood Pressure 129/86 125/76 Blood Pressure [Right Arm] Pulse Oximetry Oxygen Delivery Method Room Air,Nasal Cannula Oxygen Flow Rate 2 Narrative Exam Narrative: Pleasant gentleman resting comfortably in no obvious distress HEENT: Normocephalic atraumatic, sclerae anicteric, oropharynx is clear, neck is supple there is no JVD Lungs: Decreased breath sounds, scattered bibasilar crackles, expiratory whe ezing is noted Cardiac exam: Irregularly irregular, normal S1-S2, 2/6 systolic ejection murmur Abdomen: Soft nontender nondistended, small ventral hernia noted, no hepatosplenomegaly noted, no board-like rigidity, no palpable mass Extremities: Trace edema Skin exam: Bilateral varicosities noted Neuro exam: Nonfocal Psychiatric exam: Patient is awake alert and appropriate, answers questions a ppropriately, no hallucinations, no delusions, no tics noted. Objective Labs Result Diagrams: 09/17/19 00:15 09/17/19 00:15 Labs: Laboratory Results - last 24 hr 09/17/19 09/17/19 09/17/19 00:15 00:15 00:15 WBC 5.9 RBC 5.41 Hgb 17.9 H Hct 52.0 MCV 96.2 MCH 33.1 MCHC 34.4 RDW 13.9 Plt Count 173 Neut % (Auto) 80.2 H Lymph % (Auto) 8.8 L [place] % (Auto) 5.4 Eos % (Auto) 3.3 Baso % (Auto) 2.3 H Neut # (Auto) 4700 Lymph # (Auto) 500 L [place] # (Auto) 300 Eos # (Auto) 200 Baso # (Auto) 100 PT 12.1 INR 1.0 APTT 40 H Sodium 138 Potassium 3.7 Chloride 99 Carbon Dioxide 25 BUN 19 Creatinine 1.30 H Estimated GFR 55.9 L BUN/Creatinine Ratio 14.6 Glucose 101 Calcium 9.2 Total Bilirubin 0.9 AST 69 H ALT 53 H Alkaline Phosphatase 65 Troponin I < 0.012 B-Natriuretic Peptide 175 H Total Protein 8.2 Albumin 4.8 Globulin 3.4 Albumin/Globulin Ratio 1.4 Lipase 49 Procalcitonin Influenza A (RT-PCR) Influenza B (RT-PCR) 09/17/19 09/17/19 00:15 00:28 WBC RBC Hgb Hct MCV MCH MCHC RDW Plt Count Neut % (Auto) Lymph % (Auto) [place] % (Auto) Eos % (Auto) Baso % (Auto) Neut # (Auto) Lymph # (Auto) [place] # (Auto) Eos # (Auto) Baso # (Auto) PT INR APTT Sodium Potassium Chloride Carbon Dioxide BUN Creatinine Estimated GFR BUN/Creatinine Ratio Glucose Calcium Total Bilirubin AST ALT Alkaline Phosphatase Troponin I B-Natriuretic Peptide Total Protein Albumin Globulin Albumin/Globulin Ratio Lipase Procalcitonin < 0.05 Influenza A (RT-PCR) Flu a negative Influenza B (RT-PCR) Flu b negative Assessment & Plan Assessment & Plan narrative: Impression 1. Acute hypoxemic respiratory failure, present on admission -patient reports a URI, influenza a and B are negative -CT angio of the chest reveals no evidence of pulmonary embolus, mild streaky opacities noted suggestive of aspiration verses early pneumonia, pulmonary nodules noted which are likely old -patient has a diagnosis of COPD, he has greater than a 40 pack year history of smoking, previously not on treatment for this -patient continues to exhibit wheezing and has required oxygen as his O2 sat was noted to be 89% at 3:00 a.m. -plan will continue IV Solu-Medrol, albuterol Atrovent nebulizers, steroid nebulizer, and azithromycin as ordered -will check respiratory failure panel 2. Atrial fibrillation, persistent, present on admission -patient with a rapid AFib and a rapid ventricular response rate, he was previously on Coreg which has been continued, heart rate remains elevated. Suspect his heart rate is elevated related to his underlying primary pulmonary process. Goals at this time will be to control his respiratory status and hopefully his heart rate will improve. He received 3 doses of IV Lopressor with minimal improvement. May need to start him on scheduled metoprolol 50 Q 6 for improved heart rate during this process, will defer anticoagulation at this time, patient to follow-up with his lunchroom attendant Dr. sarabjit Calles as an outpatient 3. History of obstructive sleep apnea, not on CPAP, will continue to monitor. This may explain hypoxia in the middle of the night 4. Hypertension, continue lisinopril, may need to hold full O2 pain given the need for rate control. 5. DVT prophylaxis, Lovenox, Patient is a full code will Note that his record accordingly Patient will likely be here less than 48 hours and therefore will be admitted under observation.
[2019-09-17] MEDS: METOPROLOL IR 50 MG TABLET PO ×2 (12:54→17:44)
[2019-09-17] MEDS: methylPREDNISolone 125 MG/2 ML VIAL 60 MG IV ×2 (12:55→20:40)
--- NOTE | 2019-09-17 14:26 | CM.IDA ---
Initial DCP Assessment Note: Pt is a 64 yo male, resident of [facility]. Pt admitted for cardiac w/u and is likely heading home today. PCP: New Reeder Payer: [employer]ost[employer] Met w/pt and his dtr at bedside to explain SW role. Pt was resting in bed but did state he felt confident about his return home w/spouse and family to assist as needed. Pt denies any DC needs from this CAR REPAIRER LORRAINE Gamez
[2019-09-17 15:19] LABS: Procalcitonin < 0.05 ng/mL (<0.5)
[2019-09-17 15:25] LABS: Adenovirus Not Detected (Not Detect); Bordetella pertussis Not Detected (Not Detect); Chlamydophila pneumoniae Not Detected (Not Detect); Coronavirus 229E Not Detected (Not Detect); Coronavirus HKU1 Not Detected (Not Detect); Coronavirus NL 63 Not Detected (Not Detect); Coronavirus OC43 Not Detected (Not Detect); Human Metapneumovirus Detected (Not Detect); Human Rhinovirus/Enterovirus Not Detected (Not Detect); Influenza A Not Detected (Not Detect); Influenza B Not Detected (Not Detect); Mycoplasma pneumoniae Not Detected (Not Detect); Parainfluenza Virus 1 Not Detected (Not Detect); Parainfluenza Virus 2 Not Detected (Not Detect); Parainfluenza Virus 3 Not Detected (Not Detect); Parainfluenza Virus 4 Not Detected (Not Detect); Respiratory Syncytial Virus Not Detected (Not Detect)
--- NOTE | 2019-09-17 16:57 | PM.EVENT ---
Event Note Date Patient Seen: 09/17/19 Event Note: Respiratory panel positive for brown virus, repeat procalcitonin negative. Patient very likely has a viral infection no evidence of bacterial pneumonia.
[2019-09-17] MEDS: BUDESONIDE 0.5 MG/2 ML NEB INH (19:12)
[2019-09-18] MEDS: METOPROLOL IR 50 MG TABLET PO ×3 (00:34→10:42)
[2019-09-18 00:35] VITALS: BP 143/90; PULSE 110; RESP 20; TEMP 36.3; O2SAT 91
[2019-09-18] MEDS: ALBUTEROL/IPRATROPIUM 3 ML AMPUL INH ×3 (02:54→10:16)
[2019-09-18 02:57] VITALS: PULSE 109; RESP 16; O2SAT 92
[2019-09-18] MEDS: methylPREDNISolone 125 MG/2 ML VIAL 60 MG IV (04:14)
[2019-09-18 05:38] VITALS: BP 136/89; PULSE 105; RESP 19; TEMP 37.1; O2SAT 94
[2019-09-18 05:40] LABS: Add Manual Diff / Slide Review NO; Basophils Absolute Auto 0 /uL (0-100); Basophils Percent Auto 0.3 % (0-2); Eosinophils Absolute Auto 0 /uL (0-450); Hematocrit 45.5 % (41-53); Hemoglobin 15.4 g/dL (13.5-17.5); Lymphocytes Absolute Auto 500 /uL (1100-4500); Lymphocytes Percent Auto 7.8 % (25-40); Mean Corpuscular HGB Conc 33.8 % (30-36); Mean Corpuscular Volume 97.6 fL (80-100); Monocytes Absolute Auto 300 /uL (0-900); Monocytes Percent Auto 5.7 % (3-14); Neutrophils Absolute Auto 5000 /uL (1500-7000); Neutrophils Percent Auto 86.2 % (50-75); Platelet Count 157 X10^3/uL (150-400); Red Blood Cell Count 4.67 X10^6/uL (4.5-5.9); Red Cell Distribution Width 13.5 % (11.6-14.8); White Blood Cell Count 5.8 X10^3/uL (4.5-11.0)
[2019-09-18 05:50] LABS: Blood Urea Nitrogen 20 mg/dL (9-20); Calcium 8.4 mg/dL (8.4-10.2); Carbon Dioxide 29 mmol/L (22-32); Chloride 103 mmol/L (98-107); Estimated Glomerular Filt Rate > 60.0 mL/min (>60); Glucose 163 mg/dL (80-110); HEMOLYSIS 19 (0-50); Potassium 4.5 mmol/L (3.4-5.1); Sodium 139 mmol/L (137-145)
[2019-09-18 06:07] LABS: Procalcitonin < 0.05 ng/mL (<0.5)
[2019-09-18] MEDS: LEVOTHYROXINE 50 MCG TABLET PO (06:19)
[2019-09-18] MEDS: BUDESONIDE 0.5 MG/2 ML NEB INH (06:22)
[2019-09-18 06:24] VITALS: PULSE 96; RESP 20; O2SAT 93
[2019-09-18 09:00] VITALS: PULSE 118; RESP 20; O2SAT 92
[2019-09-18] MEDS: AZITHROMYCIN 250 MG TABLET 500 MG PO (09:03)
[2019-09-18] MEDS: ASPIRIN 81 MG CHEW TAB PO (09:03)
[2019-09-18 09:04] VITALS: BP 131/91; PULSE 114
[2019-09-18] MEDS: LISINOPRIL 20 MG TABLET 40 MG PO (09:04)
[2019-09-18] MEDS: HEPARIN 5,000 UNIT/ML VIAL 5000 UNIT SUBCUT (09:04)
--- NOTE | 2019-09-18 10:11 | CM.DANOTE ---
DCP/Assessment: Reviewed chart. Patient is a 64yr old male admitted to [facility] under OBS status with SOB. PCP listed is Dr. Reeder. Primary payor is 1)[facility]. Attempted to meet with patient this AM. Dr. Miranda and respiratory with patient at time of visit. Patient ambulating in the maria independently. It is anticipated that patient will d/c home today or tomorrow. Dr. Miranda watching patient's 02 saturations as well as heart rate. No anticipated d/c needs identified at this time. P: Home when stable. CM team to continue to follow. LORRAINE Smith Discharge Planning/Care Management CM Discharge Assessment Start: 09/18/19 10:06 Freq: Status: Active Protocol: Document 09/18/19 10:06 KJS (Rec: 09/18/19 10:11 KJS [id number]) Discharge Planning Assessment Assigned Agricultural Scientist LORRAINE Smith Contact Information Glendy [place] (spouse) [phone] Advance Directives? No Advance Directives on File No History Provided By Patient,Medical Record Prior Living Arrangements House Household Members spouse Type of transporation used prior to Drives own vehicle admit Willing to Return to Facility? Yes Independent with ADL's Yes Is patient alert and oriented? Yes Barriers to Discharge No Discharge Plan Home Transportation Arrangement Family to provide transport. Whiteboard Updated in Patient Room with Yes name and ext. # of Agricultural Scientist Review Status In Process Next Review Type Continued Stay Review
--- NOTE | 2019-09-18 10:43 | PC.NURSE ---
Dr. Miranda ordered/requested that noon time metoprolol dosing be given to patient now prior to discharge.
--- NOTE | 2019-09-18 10:44 | PM.DS.1 ---
History of Present Illness History of Present Illness Chief complaint: difficulty breathing Narrative: Patient is a 64-year-old male with a history of atrial fibrillation, hypertension the patient is a 64-year-old male with a history of atrial fibrillation, hypertension, obstructive sleep apnea remote history of renal cancer and a history of COPD who was in his usual state of health until 3 days prior to admission. Patient states he came down with a ?cried. He describes having a cough, shortness of breath, wheezing, and difficulty sleeping. Patient states that last night he developed significant coughing shortness of breath such that he could not catch his breath. He has been under the care of a cloth shader and had an echocardiogram which showed a mil dly reduced ejection fraction of 40-45%, a Holter monitor which confirmed atrial fibrillation. His Coreg was increased to 37.5. Patient turned in his Holter monitor recently as well. In any event the patient presented to the hospital with increasing shortness of breath. He was noted to be hypoxic. He was taken for CT angio to rule out pulmonary embolus. CT angio was negative for PE, there was some streaking suggestive of possible aspiration or pneumonia. And pulmonary nodules which were felt to be old. Patient had influenza a and B which were negative. He was started empirically on azithromycin and admitted to the hospital for treatment. Since admission the patient has been noted to remain in atrial fibrillation, his heart rate has been in the 120s. The patient is anxious to discharge home. Discharge Providers Provider Date of admission: 09/17/19 04:30 Discharge Date: 09/18/19 Primary care physician: New Reeder MD Discharge provider: Enrique Miranda MD Summary Hospital Course Discharge Diagnosis: 1. Acute exacerbation of COPD 2. Chronic atrial fibrillation with RVR 3. Obstructive sleep apnea 4. Hypertension Hospital Course: Patient was admitted to hospital observation for COPD exacerbation. CT angiogram was negative for PE or pneumonia. He was treated with nebulizers, IV Solu-Medrol, started on Zithromax. He tested negative for influenza but respiratory panel did, positive for brown virus. He had mild hypoxia with O2 sat 88-90% on room air. This a.m. his respiratory symptoms are much improved and lungs are clear on exam. O2 sat is 90% to 92% on room air and remains above 88% with walking. He has not previously been on any chronic inhaler therapy. He is discharged on 1 more day of Zithromax for anti-inflammatory therapy, prednisone for 4 days, and albuterol MDI. He recently saw Dr. Miller for outpatient cardiology evaluation of atrial fibrillation which is recent diagnosis for him. Outpatient echo did day prior to admission showed LVEF 60-65%, no significant valvular disease. His carvedilol had been increased to 37.5 mg b.i.d.. Patient's heart rate remained elevated during his admission with ventricular rate in the 120s at rest and up to 140 with activity. Because of his COPD we decided to switch him from carvedilol to metoprolol 150 mg b.i.d. which may be better tolerated. We also stopped aspirin and started him on Eliquis for AFib anticoagulation. His insurance coverage of anticoagulation drugs is unknown. Patient instructed to remain on aspirin if insurance does not cover Eliquis until he can go on anticoagulant therapy covered by his health plan. He has follow-up cardiology appointment on October 03. Status at Discharge Cognitive/behavioral status at discharge: oriented Functional status at discharge: independent ambulation Overall status at discharge: patient is back to baseline Time Spent with Patient Time spent: Greater than 30 minutes Exam Vital Signs (past 8 hours): - 09/18/19 02:57 09/18/19 05:38 09/18/19 06:24 Temperature 98.7 F Pulse Rate 109 H 105 H 96 H Respiratory Rate 16 19 20 Blood Pressure 136/89 Pulse Oximetry 92 94 93 09/18/19 09:04 09/18/19 10:31 Temperature Pulse Rate 114 H 118 H Respiratory Rate 20 Blood Pressure 131/91 H Pulse Oximetry 92 Oxygen Delivery Method Room Air Oxygen Flow Rate 3 Objective Labs Result Diagrams: 09/18/19 05:15 09/18/19 05:15 Labs: Laboratory Results - last 24 hr 09/17/19 09/17/19 09/18/19 13:00 14:22 05:15 WBC 5.8 RBC 4.67 Hgb 15.4 Hct 45.5 MCV 97.6 MCH 33.0 MCHC 33.8 RDW 13.5 Plt Count 157 Neut % (Auto) 86.2 H Lymph % (Auto) 7.8 L [place] % (Auto) 5.7 Eos % (Auto) 0.0 L Baso % (Auto) 0.3 Neut # (Auto) 5000 Lymph # (Auto) 500 L [place] # (Auto) 300 Eos # (Auto) 0 Baso # (Auto) 0 Sodium Potassium Chloride Carbon Dioxide BUN Creatinine Estimated GFR BUN/Creatinine Ratio Glucose Calcium Procalcitonin < 0.05 Chlamy pneumoniae PCR Not detected Adenovirus (PCR) Not detected B.parapertussis DNA PCR Not detected Coronavirus OC43 (PCR) Not detected Coronavirus HKU1 (PCR) Not detected Coronavirus 229E (PCR) Not detected Coronavirus NL63 (PCR) Not detected Human Metapneumovir PCR Detected H Influenza Type A (PCR) Not detected Influenza Type B (PCR) Not detected M. pneumoniae (PCR) Not detected Parainfluenza 1 (PCR) Not detected Parainfluenza 2 (PCR) Not detected Parainfluenza 3 (PCR) Not detected Parainfluenza 4 (PCR) Not detected RSV (PCR) Not detected Entero/Rhino (PCR) Not detected 09/18/19 09/18/19 05:15 05:15 WBC RBC Hgb Hct MCV MCH MCHC RDW Plt Count Neut % (Auto) Lymph % (Auto) [place] % (Auto) Eos % (Auto) Baso % (Auto) Neut # (Auto) Lymph # (Auto) [place] # (Auto) Eos # (Auto) Baso # (Auto) Sodium 139 Potassium 4.5 Chloride 103 Carbon Dioxide 29 BUN 20 Creatinine 1.00 Estimated GFR > 60.0 BUN/Creatinine Ratio 20.0 Glucose 163 H Calcium 8.4 Procalcitonin < 0.05 Chlamy pneumoniae PCR Adenovirus (PCR) B.parapertussis DNA PCR Coronavirus OC43 (PCR) Coronavirus HKU1 (PCR) Coronavirus 229E (PCR) Coronavirus NL63 (PCR) Human Metapneumovir PCR Influenza Type A (PCR) Influenza Type B (PCR) M. pneumoniae (PCR) Parainfluenza 1 (PCR) Parainfluenza 2 (PCR) Parainfluenza 3 (PCR) Parainfluenza 4 (PCR) RSV (PCR) Entero/Rhino (PCR) Discharge Plan Discharge Plan Patient Disposition: Home Discharge orders & Medications Prescriptions: New albuterol sulfate 90 mcg/actuation HFA aerosol inhaler 2 puff INHALATION Q4H PRN (Reason: shortness of breath) Qty: 8.5 RF: 0 prednisone 50 mg tablet 50 mg PO DAILY Qty: 4 RF: 0 azithromycin 500 mg tablet 500 mg PO DAILY 1 Days RF: 0 Eliquis 5 mg tablet 5 mg PO BID Qty: 60 RF: 0 metoprolol tartrate 100 mg tablet 150 mg PO BID Qty: 90 RF: 0 Continued felodipine 10 MG tablet extended release 24 hr 10 mg PO QDAY Qty: 0 RF: 0 lisinopril 20 MG tablet 40 mg PO QDAY Qty: 0 RF: 0 cetirizine 10 MG tablet 10 mg PO QDAY Qty: 0 RF: 0 acetaminophen [Tylenol] 325 mg Capsule 650 mg PO Q4-6H PRN (Reason: pain) RF: 0 hydrochlorothiazide 12.5 mg Tablet 12.5 mg PO DAILY RF: 0 cholecalciferol (vitamin D3) [Vitamin D3] 2,000 unit Tablet 2,000 unit PO DAILY RF: 0 zolpidem [Ambien] 10 mg Tablet 10 mg PO PRN PRN (Reason: Insomnia) RF: 0 Discontinued carvedilol [Coreg] 25 MG tablet 37.5 mg PO BID Qty: 0 RF: 0 aspirin 81 MG tablet,chewable 81 mg PO QDAY Qty: 0 RF: 0 Follow up/Referrals: New Reeder MD [Primary Care Provider] - Diet/Activity/Treatments Diet: Diet as Tolerated Visit Report/Discharge Packet Instructions: DI for Atrial Fibrillation, Metoprolol, Azithromycin, Apixaban Discharge Data Primary Care Provider: New Reeder Attending Provider: Stefan Emery Admit Date/Time: 09/17/19 04:30
--- NOTE | 2019-09-18 11:40 | PC.NURSE ---
Per [facility] pharmacy prior authorization is required from [facility] for ordered blood thinner. Dr. Miranda notified, he states he already discussed back up plan with patient prior to his leaving that he is to take aspirin and follow up with his primary care doctor as scheduled to discuss further anticoagulation options.
== END 2019-09-18 11:51 | disposition home or self-care (01) ==
LOC: ED 04:02 → AC 04:32
PROVIDERS: Internal Medicine; Admitting Provider Nurse Practitioner Gerontology; Emergency Provider Emergency Medicine; Family Provider Internal Medicine Cardiovascular Disease; PCP Family Medicine; Visit Provider Nurse Practitioner Gerontology
DX: J44.1 Chronic obstructive pulmonary disease with (acute) exacerbation (principal); J12.3 Human metapneumovirus pneumonia; Z87.891 Personal history of nicotine dependence; I10 Essential (primary) hypertension; I48.19 Other persistent atrial fibrillation; G47.33 Obstructive sleep apnea (adult) (pediatric)
CPT/HCPCS: 36415; 71045; 71275; 80048; 80053; 83690; 83880; 84145; 84484; 85025; 85610; 85730; 87502; 87633; 93005; 94640; 94660; 94762; 96361; 96372; 96374; 96375; 96376; 99285; G0378; J1644; J2930; J7613; Q9967

== ENCOUNTER → 2019-10-26 10:21 | Outpatient (CLI) | payer OTHER, SELFPAY ==
[2019-09-17 05:06] VITALS: BMI 35.5
--- NOTE | 2019-11-04 10:16 | P.PFT.S_ITS ---
Pulmonary Function Test Referral & Results Date Patient Seen: 10/26/19 Requesting provider: New Reeder Results: The spirometry demonstrates an FVC of 3.25 L which is 60% of predicted. The FEV1 was measured at 2.08 L which is 51% of predicted. The FEV1/FVC ratio was 64 which is 85% of predicted. Following the administration of bronchodilator there was no significant change. Lung volumes show an SVC of 3.3 L which is 63% of predicted. The diffusing capacity was measured at 20.11 which is 53% of predicted. No hemoglobin value was provided, so no correction for potential anemia could be made, if appropriate. The maximum voluntary ventilation was reduced Interpretation: This study demonstrates moderately severe obstructive lung disease based on reduction in FEV1 without evidence of significant benefit following bronchodilator There is also mild restrictive lung disease present based on reduction SVC There is also a significant reduction in diffusing capacity suggesting sign ificant disease at the capillary alveolar level Altogether this is consistent with a diagnosis of COPD
== END ==
PROVIDERS: Family Provider Internal Medicine Cardiovascular Disease; PCP Family Medicine; Visit Provider Family Medicine
DX: J44.9 Chronic obstructive pulmonary disease, unspecified (principal); I48.91 Unspecified atrial fibrillation; I71.2 Thoracic aortic aneurysm, without rupture
CPT/HCPCS: 94060; 94726; 94729

== ENCOUNTER → 2019-12-28 06:56 | Outpatient (CLI) | payer OTHER, SELFPAY ==
[2019-09-17 05:06] VITALS: BMI 35.5
[2019-12-28 07:39] LABS: Add Manual Diff / Slide Review NO; Basophils Absolute Auto 100 /uL (0-100); Eosinophils Absolute Auto 100 /uL (0-450); Hemoglobin 17.5 g/dL (13.5-17.5); Lymphocytes Absolute Auto 1800 /uL (1100-4500); Lymphocytes Percent Auto 27.2 % (25-40); Mean Corpuscular HGB Conc 33.6 % (30-36); Mean Corpuscular Hemoglobin 32.4 PG (26-34); Mean Corpuscular Volume 96.5 fL (80-100); Monocytes Absolute Auto 700 /uL (0-900); Monocytes Percent Auto 9.9 % (3-14); Neutrophils Absolute Auto 4000 /uL (1500-7000); Neutrophils Percent Auto 59.9 % (50-75); Platelet Count 190 X10^3/uL (150-400); Red Blood Cell Count 5.39 X10^6/uL (4.5-5.9); Red Cell Distribution Width 13.4 % (11.6-14.8); White Blood Cell Count 6.7 X10^3/uL (4.5-11.0)
[2019-12-28 07:53] LABS: BUN Creatinine Ratio 15.6 (6-22); Blood Urea Nitrogen 21 mg/dL (9-20); Calcium 9.1 mg/dL (8.4-10.2); Carbon Dioxide 27 mmol/L (22-32); Chloride 104 mmol/L (98-107); Cholesterol 152 mg/dL (140-199); Estimated Glomerular Filt Rate 53.6 mL/min (>60); Glucose 102 mg/dL (80-110); HDL Cholesterol 39 mg/dL (40-60); HEMOLYSIS < 15 (0-50); LDL Cholesterol Calculated 86 mg/dL (<100); Potassium 3.7 mmol/L (3.4-5.1); Sodium 140 mmol/L (137-145); Triglycerides 133 mg/dL (35-150)
== END ==
PROVIDERS: Family Provider Internal Medicine Cardiovascular Disease; PCP Family Medicine; Referring Provider Internal Medicine Cardiovascular Disease; Visit Provider Internal Medicine Cardiovascular Disease
DX: I10 Essential (primary) hypertension (principal)
CPT/HCPCS: 36415; 80048; 80061; 85025

== ENCOUNTER → 2020-05-15 06:59 | Outpatient (CLI) | payer OTHER, SELFPAY ==
[2019-09-17 05:06] VITALS: BMI 35.5
[2020-05-15 09:12] LABS: BUN Creatinine Ratio 18.7 (6-22); Blood Urea Nitrogen 26 mg/dL (9-20); Carbon Dioxide 25 mmol/L (22-32); Chloride 103 mmol/L (98-107); Estimated Glomerular Filt Rate 51.8 mL/min (>60); Glucose 96 mg/dL (80-110); HEMOLYSIS 45 (0-50); Potassium 4.4 mmol/L (3.4-5.1); Sodium 138 mmol/L (137-145)
== END ==
PROVIDERS: Internal Medicine Cardiovascular Disease; Family Provider Internal Medicine Cardiovascular Disease; PCP Family Medicine; Referring Provider Family Medicine; Visit Provider Family Medicine
DX: I48.91 Unspecified atrial fibrillation (principal)
CPT/HCPCS: 36415; 80048

== ENCOUNTER → 2021-01-17 07:17 | Outpatient (CLI) | payer OTHER, SELFPAY ==
[2019-09-17 05:06] VITALS: BMI 35.5
[2021-01-17 08:02] LABS: Add Manual Diff / Slide Review NO; Basophils Absolute Auto 0 /uL (0-100); Eosinophils Absolute Auto 200 /uL (0-450); Eosinophils Percent Auto 3.7 % (2-4); Hematocrit 45.6 % (41-53); Hemoglobin 15.5 g/dL (13.5-17.5); Lymphocytes Absolute Auto 1400 /uL (1100-4500); Lymphocytes Percent Auto 28.4 % (25-40); Mean Corpuscular Hemoglobin 33.1 PG (26-34); Mean Corpuscular Volume 97.2 fL (80-100); Monocytes Absolute Auto 400 /uL (0-900); Neutrophils Absolute Auto 2800 /uL (1500-7000); Neutrophils Percent Auto 57.9 % (50-75); Platelet Count 194 X10^3/uL (150-400); Red Cell Distribution Width 14.2 % (11.6-14.8); White Blood Cell Count 4.8 X10^3/uL (4.5-11.0)
[2021-01-17 08:19] LABS: Alanine Aminotransferase 26 IU/L (<50); Albumin 3.9 g/dL (3.5-5.0); Albumin Globulin Ratio 1.3 (1.0-2.8); Alkaline Phosphatase 43 U/L (38-126); Aspartate Aminotransferase 36 IU/L (17-59); Bilirubin Total 0.4 mg/dL (0.2-1.3); Blood Urea Nitrogen 18 mg/dL (9-20); Calcium 9.6 mg/dL (8.4-10.2); Carbon Dioxide 32 mmol/L (22-32); Chloride 101 mmol/L (98-107); Cholesterol 208 mg/dL (140-199); Estimated Glomerular Filt Rate > 60.0 mL/min (>60); Globulin 2.9 g/dL (1.7-4.1); Glucose 101 mg/dL (80-110); HDL Cholesterol 61 mg/dL (40-60); HEMOLYSIS < 15 (0-50); LDL Cholesterol Calculated 127 mg/dL (<100); Potassium 3.8 mmol/L (3.4-5.1); Sodium 139 mmol/L (137-145); Total Protein 6.8 g/dL (6.3-8.2); Triglycerides 101 mg/dL (35-150); Uric Acid 9.1 mg/dL (3.5-8.5)
[2021-01-17 08:50] LABS: Prostate Specific Antigen Scrn 1.75 ng/mL (0.1-4.0)
== END ==
PROVIDERS: Family Provider Internal Medicine Cardiovascular Disease; PCP Family Medicine; Referring Provider Family Medicine; Visit Provider Family Medicine
DX: R91.8 Other nonspecific abnormal finding of lung field (principal); I48.91 Unspecified atrial fibrillation; J44.9 Chronic obstructive pulmonary disease, unspecified; E78.5 Hyperlipidemia, unspecified; M54.5 Low back pain; G47.33 Obstructive sleep apnea (adult) (pediatric)
CPT/HCPCS: 36415; 80053; 80061; 84443; 84550; 85025; G0103

== ENCOUNTER → 2022-01-20 13:01 | Outpatient (CLI) | payer OTHER, SELFPAY ==
[2019-09-17 05:06] VITALS: BMI 35.5
--- NOTE | 2022-01-20 13:02 | DI.ECHO.S_ITS ---
[facility]---------+ [facility] +---------+ : : [address] : [place] : : : : [id number] : : : : Phone: [phone]---------+ Echocardiogram Report + + :Name: HANANE COBOS Study Date: 01/20/2022 Height: 74 in : :[facility] ReadingLocation: Weight: 275 lb : : Gender: Male BSA: 2.5 m2 : :: 1955 Age: 66 yrs BP: 161/102 mmHg: :Reason For Study: OTHER SPECIFIED DISORDERS OF ARTERIES AND : :ARTERIOLS : :Ordering Physician: ORACIO, : :LIN Performed By: Sarika Urbina : :Referring: LIN MILLER : + + Interpretation Summary 1) Mildly enlarged left ventricle with borderline reduced systolic function (EF about 50%). 2) The right ventricle is normal in size and function. 3) The left atrium is moderately dilated. 4) There is mild to moderate aortic regurgitation. 5) The ascending aorta is moderately enlarged at 4.6cm. 6) Hypertension present during the study (BP 161/102mmHg). 7) Compared to the Echo done 09/07/2019, no significant change. Procedure: A two-dimensional transthoracic echocardiogram with color flow and Doppler was performed. The study quality was technically adequate. Comparison is made with the echocardiogram of 09/07/2019. The patient was in sinus rhythm with heart rates between 56-64 bpm during the exam. Left Ventricle: The left ventricle is mildly dilated. There is normal left ventricular wall thickness. The estimated left ventricular end diastolic volume is 156 ml. Left ventricular ejection fraction is estimated to be 50 +/- 5%. There are no focal wall motion abnormalities. Right Ventricle: The right ventricle is normal in size and function. Atria: The left atrium is moderately dilated. The right atrium is mildly dilated. There is no Doppler evidence for an interatrial shunt. Mitral Valve: The mitral valve leaflets appear mildly thickened, but open well. There is trace mitral regurgitation. Aortic Valve: There is mild aortic valve sclerosis. The aortic valve opens well. There is no aortic valve stenosis. There is mild to moderate aortic regurgitation. Tricuspid Valve: The tricuspid valve is normal in structure and function. There is trace tricuspid regurgitation. Pulmonic Valve: The pulmonic valve leaflets are thin and pliable; valve motion is normal. There is mild pulmonic regurgitation. Great Vessels: The aortic root is normal size. The ascending aorta is moderately enlarged. The IVC is of normal diameter and collapses greater than 50% with a sniff. This suggests a low right atrial pressure of 3 mm Hg. Pericardium/ Pleura There is no pericardial effusion. There is no pleural effusion. MMode/2D Measurements & Calculations LVIDd: 6.1 cm LVOT diam: 2.7 cm LVIDs: 3.8 cm Ao root diam: 3.9 cm FS: 38.2 % asc Aorta Diam: 4.6 cm IVSd: 1.0 cm Ao Arch Diam (Prox Trans): 3.8 cm LVPWd: 0.94 cm LV cruz. diameter/BSA (cm/m^2): 2.5 LV sys. diameter/BSA (cm/m^2): 1.5 LA A2 area: 36.6 cm2 RA long axis: 6.5 cm LA A4 area: 28.9 cm2 RA area: 26.9 cm2 LA length (vol): 7.3 cm RA vol: 94.2 ml LA vol: 123.5 ml RA : 37.8 ml/m2 LA vol index: 49.6 ml/m2 IVC diam: 1.2 cm RVD1 (basal): 3.8 cm RVD2 (mid): 3.0 cm TAPSE: 2.1 cm Doppler Measurements & Calculations Ao V2 max: 175.7 cm/sec LVOT Max Braeden: 99.2 cm/sec Ao V2 mean: 119.5 cm/sec LV V1 max P.9 mmHg Ao max P.4 mmHg LV V1 VTI: 22.7 cm Ao mean P.5 mmHg YRN(I,D): 3.6 cm2 Ao V2 VTI: 36.5 cm YRN(V,D): 3.3 cm2 sev ratio: 0.62 YRN indexed to BSA (cm^2/m^2): 1.4 AI P1/2t: 882.1 msec AI dec slope: 147.1 cm/sec2 MV E max braeden: 75.0 cm/sec PA V2 max: 89.1 cm/sec MV A max braeden: 95.5 cm/sec PA V2 mean: 57.5 cm/sec MV E/A: 0.79 PA mean P.6 mmHg Med Peak E' Braeden: 4.1 cm/sec PA pr(Accel): 10.5 mmHg E/E' med: 18.4 Lat Peak E' Braeden: 8.4 cm/sec E/E' lat: 8.9 E/e' average: 13.7 MV dec time: 0.32 sec SV(OT): 131.5 ml Reading Physician:12:29 PM
== END ==
PROVIDERS: Family Provider Internal Medicine Cardiovascular Disease; PCP Family Medicine; Referring Provider Internal Medicine Cardiovascular Disease; Visit Provider Internal Medicine Cardiovascular Disease
DX: I37.1 Nonrheumatic pulmonary valve insufficiency (principal); I35.1 Nonrheumatic aortic (valve) insufficiency; I77.89 Other specified disorders of arteries and arterioles
CPT/HCPCS: 93306

== ENCOUNTER → 2022-04-24 08:34 | Outpatient (CLI) | payer OTHER, SELFPAY ==
[2019-09-17 05:06] VITALS: BMI 35.5
[2022-04-24 09:24] LABS: Magnesium 1.9 mg/dL (1.6-2.3)
== END ==
PROVIDERS: Family Provider Internal Medicine Cardiovascular Disease; PCP Family Medicine; Referring Provider Physician Assistant Medical; Visit Provider Physician Assistant Medical
DX: I48.0 Paroxysmal atrial fibrillation (principal)
CPT/HCPCS: 36415; 83735

== ENCOUNTER → 2022-10-27 08:31 | Outpatient (CLI) | payer MEDICARE, OTHER, SELFPAY ==
[2019-09-17 05:06] VITALS: BMI 35.5
[2022-10-27 09:55] LABS: Alanine Aminotransferase 24 IU/L (<50); Albumin 3.8 g/dL (3.5-5.0); Albumin Globulin Ratio 1.4 (1.0-2.8); Alkaline Phosphatase 50 U/L (38-126); Aspartate Aminotransferase 26 IU/L (17-59); BUN Creatinine Ratio 18.4 (6-22); Bilirubin Total 0.7 mg/dL (0.2-1.3); Blood Urea Nitrogen 26 mg/dL (9-20); Calcium 8.8 mg/dL (8.4-10.2); Carbon Dioxide 28 mmol/L (22-32); Chloride 103 mmol/L (98-107); Estimated Glomerular Filt Rate 55 mL/min (>60); Globulin 2.8 g/dL (1.7-4.1); Glucose 98 mg/dL (80-110); HEMOLYSIS < 15 (0-50); Potassium 4.5 mmol/L (3.4-5.1); Sodium 137 mmol/L (137-145); Total Protein 6.6 g/dL (6.3-8.2)
== END ==
PROVIDERS: Family Provider Internal Medicine Cardiovascular Disease; PCP Family Medicine; Referring Provider Internal Medicine Cardiovascular Disease; Visit Provider Internal Medicine Cardiovascular Disease
DX: I48.3 Typical atrial flutter (principal)
CPT/HCPCS: 36415; 80053

== ENCOUNTER → 2022-11-13 10:37 | Outpatient (CLI) | payer MEDICARE, OTHER, SELFPAY ==
[2019-09-17 05:06] VITALS: BMI 35.5
--- NOTE | 2022-11-13 | DI.CT.S_ITS ---
PROCEDURE: CT CHEST WO CON INDICATIONS: PULMONARY NODULES TECHNIQUE: Noncontrast 5 mm thick sections acquired from the pulmonary apices to the posterior costophrenic angles. 1 mm lung window, 5 mm thick coronal and sagittal and 7 mm axial MIP reformats were then acquired. For radiation dose reduction, the following was used: automated exposure control, adjustment of mA and/or kV according to patient size. COMPARISON: CT 05/22/2020. FINDINGS: Image quality: Excellent. Lungs and pleura: Pleural parenchymal bands within the lung bases. No reticulation. Trace bronchiectasis in the lingula and right middle lobe, with associated volume loss. Stable pulmonary nodules in the lung bases compared with 2020, statistically benign. Examples include: -6 mm solid nodule, right lower lobe (3/227). -7.5 mm solid nodule, left lower lobe (3/244). Mediastinum: Heart size is normal. No pericardial effusion. No mediastinal adenopathy by size criteria. Thoracic aorta and central pulmonary arteries are normal in size. Esophagus is normal in caliber. Tiny hiatal hernia. Trace coronary calcifications. Bones and chest wall: No suspicious bony lesions. No vertebral body compression fractures. No axillary or supraclavicular adenopathy by size criteria. Thyroid gland demonstrates a 1 cm left nodule; no further follow-up per consensus guidelines. Abdomen: Visualized upper abdominal solid organs and bowel loops appear normal in the absence of contrast. IMPRESSION: 1. Mild volume loss with bronchiectasis in the right middle lobe and lingula. 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 2. Stable pulmonary nodules since 2019, benign. Dictated by: Zachariah Fontaine M.D. on 11/13/2022 at 11:49 Approved by: Zachariah Fontaine M.D. on 11/13/2022 at 11:57
== END ==
PROVIDERS: Family Provider Internal Medicine Cardiovascular Disease; PCP Family Medicine; Referring Provider Specialist; Visit Provider Specialist
DX: R91.8 Other nonspecific abnormal finding of lung field (principal)
CPT/HCPCS: 71250

== ENCOUNTER 2023-04-01 10:15 | Outpatient (RCR) | payer MEDICARE, OTHER, SELFPAY ==
[2019-09-17 05:06] VITALS: BMI 35.5
== END 2023-04-01 12:15 ==
LOC: PUL 10:15
PROVIDERS: Family Provider Internal Medicine Cardiovascular Disease; PCP Family Medicine; Referring Provider Specialist; Visit Provider Internal Medicine Sleep Medicine
DX: J41.0 Simple chronic bronchitis (principal)
CPT/HCPCS: 94626; G0237; G0238

== ENCOUNTER → 2023-04-16 13:37 | Outpatient (CLI) | payer MEDICARE, OTHER, SELFPAY ==
[2019-09-17 05:06] VITALS: BMI 35.5
--- NOTE | 2023-04-16 | DI.ECHO.S_ITS ---
[place] +---------+ [facility] +---------+ : : [address] : [address] : : : : [id number] : : : : Phone: [phone]+ Echocardiogram Report + + :Name: HANANE COBOS Study Date: 04/16/2023 Height: 74 in : :[facility] ReadingLocation: Weight: 285 lb : : Gender: Male BSA: 2.5 m2 : :: 1955 Age: 67 yrs BP: 160/85 mmHg: :Reason For Study: Other Specified Disorders of Arteries : :Ordering Physician: ORACIO, : :LIN Performed By: Jadyn Palma : :Referring: LIN MILLER : + + Interpretation Summary 1) Mildly enlarged left ventricle with low normal sysotlic function (EF 50- 55%). 2) Normal right ventricular size and function. 3) There is mild aortic regurgitation. 4) A patent foramen ovale is suspected. 5) The ascending aorta is mild-moderately enlarged at 4.4cm. 6) Compared to the Echo done 01/20/2022, no significant change. Procedure: A two-dimensional transthoracic echocardiogram with color flow and Doppler was performed. The study quality was technically difficult. Comparison is made with the echocardiogram of 01/20/2022. The patient was in normal sinus rhythm during the exam. Left Ventricle: The left ventricle is mildly dilated. The ejection fraction is estimated to be 50-55%. Diastolic parameters suggest a relaxation abnormality of the left ventricle, consistent with probable normal filling pressures. Right Ventricle: The right ventricle is normal size. The right ventricular systolic function is normal. Atria: The left atrium is moderately dilated. The right atrium is moderately dilated. A patent foramen ovale is suspected. Mitral Valve: The mitral valve is grossly normal. There is no mitral valve stenosis. There is no mitral regurgitation noted. Aortic Valve: The aortic valve is not well visualized. There is mild aortic valve sclerosis. There is no aortic valve stenosis. There is mild aortic regurgitation. Tricuspid Valve: The tricuspid valve is not well visualized. There is no tricuspid stenosis. There is trace tricuspid regurgitation. Pulmonary artery pressures cannot be estimated because of the lack of a measurable TR jet velocity. Pulmonic Valve: The pulmonic valve is not well visualized. There is no pulmonic valvular stenosis. There is trace pulmonic regurgitation. Great Vessels: The aortic root is mildly dilated. The ascending aorta is mild-moderately enlarged. The pulmonary is not well visualized. The IVC is of normal diameter and collapses greater than 50% with a sniff. This suggests a low right atrial pressure of 3 mm Hg. Pericardium/ Pleura There is no pericardial effusion. There is no pleural effusion. MMode/2D Measurements & Calculations LVIDd: 6.1 cm LVOT diam: 2.3 cm LVIDs: 3.0 cm Ao root diam: 3.8 cm FS: 51.6 % asc Aorta Diam: 4.4 cm IVSd: 1.1 cm LVPWd: 1.4 cm LV cruz. diameter/BSA (cm/m^2): 2.4 LV sys. diameter/BSA (cm/m^2): 1.2 LA A2 area: 20.0 cm2 RA long axis: 7.0 cm LA A4 area: 30.7 cm2 RA area: 25.1 cm2 LA length (vol): 6.6 cm RA vol: 76.9 ml LA vol: 79.4 ml RA : 30.5 ml/m2 LA vol index: 31.5 ml/m2 RVD1 (basal): 3.7 cm LVLs ap4: 6.5 cm LVLd ap2: 8.2 cm LVLs ap2: 6.4 cm Doppler Measurements & Calculations Ao V2 max: 189.5 cm/sec LVOT Max Braeden: 110.0 cm/sec Ao V2 mean: 132.5 cm/sec LV V1 max P.8 mmHg Ao max P.0 mmHg LV V1 VTI: 22.4 cm Ao mean P.5 mmHg YRN(I,D): 2.3 cm2 Ao V2 VTI: 40.7 cm YRN(V,D): 2.4 cm2 sev ratio: 0.55 YRN indexed to BSA (cm^2/m^2): 0.91 AI P1/2t: 1370 msec AI dec slope: 76.6 cm/sec2 MV E max braeden: 78.1 cm/sec PA V2 max: 91.0 cm/sec MV A max braeden: 86.8 cm/sec PA V2 mean: 64.9 cm/sec MV E/A: 0.90 PA mean P.0 mmHg Med Peak E' Braeden: 5.6 cm/sec PA pr(Accel): 47.9 mmHg E/E' med: 13.9 Lat Peak E' Braeden: 8.1 cm/sec E/E' lat: 9.6 E/e' average: 11.8 MV dec time: 0.18 sec SV(LVOT): 93.1 ml AV VR_phl: 0.58 YRN(VTI)/BSA_phl: 0.90 MV P1/2t-pr_phl: 54.0 msec Reading Physician:04:18 PM
== END ==
PROVIDERS: Family Provider Internal Medicine Cardiovascular Disease; PCP Family Medicine; Referring Provider Internal Medicine Cardiovascular Disease; Visit Provider Internal Medicine Cardiovascular Disease
DX: I34.0 Nonrheumatic mitral (valve) insufficiency (principal); I77.810 Thoracic aortic ectasia; I77.89 Other specified disorders of arteries and arterioles
CPT/HCPCS: 93306

== ENCOUNTER → 2023-10-15 10:33 | Outpatient (CLI) | payer MEDICARE, OTHER, SELFPAY ==
[2019-09-17 05:06] VITALS: BMI 35.5
[2023-10-15 11:30] LABS: Alanine Aminotransferase 20 IU/L (<50); Albumin 4.1 g/dL (3.5-5.0); Albumin Globulin Ratio 1.4 (1.0-2.8); Alkaline Phosphatase 45 U/L (38-126); Aspartate Aminotransferase 26 IU/L (17-59); BUN Creatinine Ratio 18.4 (6-22); Bilirubin Total 0.8 mg/dL (0.2-1.3); Blood Urea Nitrogen 21 mg/dL (9-20); Calcium 9.5 mg/dL (8.4-10.2); Carbon Dioxide 23 mmol/L (22-32); Chloride 106 mmol/L (98-107); Estimated Glomerular Filt Rate > 60 mL/min (>60); Globulin 2.9 g/dL (1.7-4.1); Glucose 91 mg/dL (80-110); HEMOLYSIS < 15 (0-50); Magnesium 1.8 mg/dL (1.6-2.3); Potassium 4.7 mmol/L (3.4-5.1); Sodium 138 mmol/L (137-145)
== END ==
LOC: LAB 10:35
PROVIDERS: Family Provider Internal Medicine Cardiovascular Disease; PCP Family Medicine; Referring Provider Physician Assistant Medical; Visit Provider Physician Assistant Medical
DX: I48.19 Other persistent atrial fibrillation (principal)
CPT/HCPCS: 36415; 80053; 83735

== ENCOUNTER → 2023-11-10 10:14 | Outpatient (CLI) | payer MEDICARE, OTHER, SELFPAY ==
[2019-09-17 05:06] VITALS: BMI 35.5
--- NOTE | 2023-11-10 10:23 | DI.CT.S_ITS ---
PROCEDURE: CT LUNG LOW DOSE SCREENING INDICATIONS: Annual lung cancer screening TECHNIQUE: Noncontrast 2.0-2.5 mm thick sections acquired from the pulmonary apices to the posterior costophrenic angles. 7 mm thick axial MIP, and 5 mm coronal and sagittal reformats were then acquired. For radiation dose reduction, the following was used: automated exposure control, adjustment of mA and/or kV according to patient size. COMPARISON: [facility], CT, CT CHEST WO [facility], 11/13/2022, 10:38. FINDINGS: Image quality: Diagnostic. Lower Neck: No enlarged lymph nodes. Thyroid: No thyroid nodules which require sonographic follow up, per consensus guidelines. Axillae: No enlarged lymph nodes. Chest Wall: Unremarkable. Bones: Degenerative changes of the spine. Lungs and Pleura: No pneumothorax or pleural effusions. Stable 6 millimeter right lower lobe subpleural nodule (3/208). Stable 7.5 millimeter left lower lobe subpleural nodule (3/235). Stable 3 millimeter subpleural left lower lobe nodule (3/181). Stable 4 millimeter right lower lobe subpleural nodule (3/221). Scattered additional pulmonary nodules measuring less than 5 millimeters are stable. Linear atelectasis versus scarring at the bases, right middle lobe and lingula. Heart: Heart size is normal. Trace coronary artery calcifications. No pericardial effusion. Thoracic Vessels: The aorta and pulmonary arteries demonstrate normal size. Trace atherosclerotic calcifications. Mediastinum and Sil: No enlarged lymph nodes. Esophagus: No wall thickening. Tiny hiatal hernia. Upper Abdomen: Hypodensity in the left hepatic lobe (2/60) is not well evaluated. Surgical clips in the right retroperitoneum IMPRESSION: Multiple stable pulmonary nodules measuring up to 7.5 millimeters. LUNG-RADS 2; continued annual screening, if eligible. Dictated by: Georgi Cline M.D. on 11/10/2023 at 11:41 Approved by: Georgi Cline M.D. on 11/10/2023 at 11:50
== END ==
PROVIDERS: Family Provider Internal Medicine Cardiovascular Disease; PCP Family Medicine; Referring Provider Internal Medicine Sleep Medicine; Visit Provider Internal Medicine Sleep Medicine
DX: Z12.2 Encounter for screening for malignant neoplasm of respiratory organs (principal); F17.211 Nicotine dependence, cigarettes, in remission; R91.8 Other nonspecific abnormal finding of lung field
CPT/HCPCS: 71271

== ENCOUNTER 2024-02-15 07:24 | Day surgery (SDC) | payer MEDICARE, OTHER, SELFPAY ==
[2019-09-17 05:06] VITALS: BMI 35.5
--- NOTE | 2024-02-15 | PATH_ITS ---
[facility] Accession Number: [id number] No. of containers..02 Tissue . 01 Material submitted: . PART A: colon - TRANSVERSE POLYP PART B: sigmoid colon - SIGMOID POLYP . 01 Diagnosis: Part A: TRANSVERSE POLYP: Tubular adenoma. . Part B: SIGMOID POLYP: 1. Benign submucosal leiomyoma. 2. Hyperplastic polyp. STO 02/22/2024 1507 Local . 01 Electronically signed: . Jarocho Montes MD, Pathologist NPI- [id number] . 01 Gross description: . Part A: TRANSVERSE POLYP: Received in formalin are 3 fragment(s) of new[place], soft tissue measuring 0.2 x 0.2 x 0.2 cm to 0.3 x 0.3 x 0.2 cm submitted entirely in 1 cassette(s) . Part B: SIGMOID POLYP: Received in formalin are 3 fragment(s) of newell, soft tissue measuring 0.2 x 0.2 x 0.2 cm to 0.5 x 0.2 x 0.2 cm submitted entirely in 1 cassette(s) /VANCE 02/22/2024 1507 Local . 01 Pathologist provided ICD-10: D12.3, D12.5 . 01 CPT . 946959, 673740 Specimen Comment: A courtesy copy of this report has been sent to [phone] Performed at: [address] [id number] MD Jarocho Montes MD Phone: [phone]
[2024-02-15] MEDS: LACTATED RINGERS 1,000 ML 42 ML IV (07:35)
[2024-02-15 07:50] VITALS: BP 156/94; PULSE 62; RESP 18; TEMP 36.1; O2SAT 92
--- NOTE | 2024-02-15 08:14 | P.HP_ITS ---
History of Present Illness History of Present Illness Date Patient Seen: 02/15/24 Time Patient Seen: 08:14 Chief complaint: Screening Colonoscopy Narrative: Chance is a 68-year-old man here for screening colonoscopy. Last colonoscopy perhaps 3 years ago with poor prep. He has a personal history of colonic polyps. No family history of intestinal malignancy. No abdominal concerns today. [facility] Medical History Obstructive sleep apnea Hypertension Renal cancer Atrial fibrillation Surgical History History of nephrectomy Family History Mother Atrial fibrillation Daughter Supraventricular tachycardia Social History household members: spouse Smoking Status: Former smoker alcohol intake: current Meds Home Medications and Allergies Home Medications Medication Instructions Recorded Confirmed Type felodipine 10 mg tablet,extended 10 mg PO QDAY ##0 07/31/16 02/15/24 History release 24 hr cholecalciferol (vitamin D3) 50 2,000 unit PO DAILY 09/17/19 02/15/24 History mcg (2,000 unit) tablet (Vitamin D3) zolpidem 10 mg tablet (Ambien) 10 mg PO PRN PRN Insomnia 09/17/19 02/15/24 History albuterol sulfate 90 mcg/actuation 2 puff inhalation Q4H PRN 09/18/19 02/15/24 Rx aerosol inhaler shortness of breath #8.5 grams cetirizine 5 mg tablet (Allergy 5 mg PO DAILY PRN Insomnia 11/03/23 02/15/24 History Relief (cetirizine)) coenzyme Q10 100 mg capsule (Co 100 mg PO BID 11/03/23 02/15/24 History Q-10) dofetilide 125 mcg capsule 125 mcg PO Q12H 11/03/23 02/15/24 History hydralazine 50 mg tablet 50 mg PO BID 11/03/23 02/15/24 History lisinopril 40 mg tablet 40 mg PO DAILY 11/03/23 02/15/24 History metoprolol succinate 50 mg 50 mg PO DAILY 11/03/23 02/15/24 History tablet,extended release 24 hr rivaroxaban 20 mg tablet (Xarelto) 20 mg PO DAILY 11/03/23 02/14/24 History spironolactone 25 mg tablet 25 mg PO DAILY 11/03/23 02/15/24 History tiotropium 2.5 mcg-olodaterol 2.5 2 puff inhalation DAILY #12 grams 11/03/23 02/15/24 Rx mcg/actuation mist for inhalation (Stiolto Respimat) Allergies Allergy/AdvReac Type Severity Reaction Status Date / Time No Known Drug Allergies Allergy Verified 11/30/23 13:43 Exam Vital Signs (past 8 hours): - 02/15/24 07:50 Temperature 97 F L Pulse Rate 62 Respiratory Rate 18 Blood Pressure 156/94 H Pulse Oximetry 92 Oxygen Delivery Method Room Air Oxygen Delivery Method Room Air Narrative Exam Narrative: General adult man alert oriented no acute distress Chest nonlabored respiration Extremities warm well perfused Assessment & Plan Assessment & Plan narrative: The patient requires colorectal screening and colonoscopy is recommended. Technical details were discussed. Risks, benefits, alternatives explained. Risks including but not limited to myocardial infarction, aspiration, bleeding, pain, missed lesion, incomplete examination, need for further radiographic studies, intestinal injury, and need for major abdominal surgery were discussed. All questions were answered to their satisfaction, and they are in agreement with this plan.
[2024-02-15 08:54] VITALS: BP 130/85; PULSE 68; RESP 14; TEMP 36.9; O2SAT 93
[2024-02-15 08:58] VITALS: BP 118/76; PULSE 71; RESP 20; O2SAT 94
[2024-02-15 09:04] VITALS: BP 121/78; PULSE 70; RESP 18; O2SAT 93
--- NOTE | 2024-02-15 09:06 | P.OP.COLON_ITS ---
Operative Date/Time/Diagnoses Date of procedure: 02/15/24 Time of procedure: 09:06 Pre-op diagnosis: Personal history of colonic polyps Post-op diagnosis: other (Colonic polyps x5) Procedure & Clinicians Study performed: Colonoscopy and polypectomy Same procedure as scheduled: Yes Indications: Colorectal screening Personal history of colonic polyps Surgeon: Nic Jordan Procedure Notes Procedure in detail: The history and physical was performed/updated and the patient is ASA class is 2. The procedure was discussed in detail with the patient. Potential risks complications including infection, bleeding, missed diagnosis, perforation, need for surgery, and were explained. Their questions were answered and informed consent was obtained. Patient was brought to the procedure room and placed standard monitoring equipment. The patient's vital signs were monitored continuously throughout the entire procedure. Prior to starting time-out was performed. The patient was placed in the left lateral recumbent position. Procedural sedation was administered by anesthesia. Examination began with a thorough inspection of the perianal area there was no evidence of fissures, fistulae, external hemorrhoids or cutaneous malignancy. The colonoscopy scope was then placed into the anal canal and was advanced to the cecum, which was identified by the ileocecal valve, the appendiceal orifice and the confluence of the taenia. The scope was then slowly withdrawn examining colon thoroughly in all directions, irrigating it of any residual stool. The scope was retroflexed within the rectum The patient tolerated the procedure well. They will be discharged once criteria are met. The prep was of fair quality. The withdrawl time was 15 minutes. FINDINGS * Transverse colon -polyps 3-5 mm x3 removed with biopsy forceps * Sigmoid colon-polyps 3 mm removed with biopsy forceps * Extensive diverticulosis of descending colon * Internal hemorrhoids Specimen(s): other (Transverse colon polyps x3, sigmoid polyps x2) Impression: Colonic polyps x5 Post-procedure Recommendations: High fiber diet Plan for aftercare: Follow-up is dependent on pathology findings Disposition: same day surgery
[2024-02-15 09:11] VITALS: BP 122/79; PULSE 70; RESP 16; O2SAT 93
== END 2024-02-15 09:24 | disposition home or self-care (01) ==
PROVIDERS: Family Provider Internal Medicine Cardiovascular Disease; PCP Family Medicine; Referring Provider Surgery; Visit Provider Surgery
PROC: 0DJD8ZZ Inspection of Lower Intestinal Tract, Via Natural or Artificial Opening Endoscopic (ICD-10-PCS; CPT 45378; principal; 2024-02-15 08:30)
DX: Z12.11 Encounter for screening for malignant neoplasm of colon (principal); Z86.010 Personal history of colon polyps; K57.30 Diverticulosis of large intestine without perforation or abscess without bleeding; K64.8 Other hemorrhoids; D12.3 Benign neoplasm of transverse colon; D12.5 Benign neoplasm of sigmoid colon
CPT/HCPCS: 45380; J2704

== ENCOUNTER → 2024-03-06 08:32 | Outpatient (CLI) | payer MEDICARE, OTHER, SELFPAY ==
[2019-09-17 05:06] VITALS: BMI 35.5
[2024-03-06 09:19] LABS: Hematocrit 47.1 % (41-53); Hemoglobin 15.7 g/dL (13.5-17.5); Mean Corpuscular HGB Conc 33.3 % (30-36); Mean Corpuscular Hemoglobin 32.1 PG (26-34); Mean Corpuscular Volume 96.4 fL (80-100); Platelet Count 238 X10^3/uL (150-400); Red Blood Cell Count 4.89 X10^6/uL (4.5-5.9); Red Cell Distribution Width 14.8 % (11.6-14.8); White Blood Cell Count 5.9 X10^3/uL (4.5-11.0)
[2024-03-06 09:51] LABS: BUN Creatinine Ratio 18.5 (6-22); Blood Urea Nitrogen 22 mg/dL (9-20); Calcium 8.6 mg/dL (8.4-10.2); Carbon Dioxide 27 mmol/L (22-32); Chloride 108 mmol/L (98-107); Cholesterol 213 mg/dL (140-199); Estimated Glomerular Filt Rate > 60 mL/min (>60); Glucose 116 mg/dL (80-110); HDL Cholesterol 62 mg/dL (40-60); HEMOLYSIS < 15 (0-50); LDL Cholesterol Calculated 135 mg/dL (<100); Potassium 4.7 mmol/L (3.4-5.1); Sodium 138 mmol/L (137-145); Triglycerides 82 mg/dL (35-150)
== END ==
LOC: LAB 08:33
PROVIDERS: Family Provider Internal Medicine Cardiovascular Disease; PCP Family Medicine; Referring Provider Internal Medicine Cardiovascular Disease; Visit Provider Internal Medicine Cardiovascular Disease
DX: E78.5 Hyperlipidemia, unspecified (principal); I10 Essential (primary) hypertension
CPT/HCPCS: 36415; 80048; 80061; 85027

== ENCOUNTER → 2024-03-07 12:35 | Outpatient (CLI) | payer MEDICARE, OTHER, SELFPAY ==
[2019-09-17 05:06] VITALS: BMI 35.5
--- NOTE | 2024-03-07 12:37 | DI.ECHO.S_ITS ---
[facility] +---------+ [facility] : : [address] : : [place] : : [id number] : : Phone: [phone] Echocardiogram Report + + :Name: HANANE COBOS Study Date: 03/07/2024 Height: 74 in : :Hospital ReadingLocation: Weight: 290 lb : : Gender: Male BSA: 2.5 m2 : :: 1955 Age: 68 yrs BP: 144/88 mmHg: :Reason For Study: DISORDERS OF ARTERIES AND ARTERIOLES : :Ordering Physician: ORACIO, : :LIN Performed By: Sarika Urbina : :Referring: LIN MILLER : + + Interpretation Summary 1) Mildly increased left ventricular thickness (concentric) with normal size, normal wall motion, and normal systolic function (EF 55-60%). 2) Mildly enlarged right ventricular size with normal function. 3) There is mild aortic regurgitation. 4) The ascending aorta is moderately enlarged at 4.5cm. 5) Compared to the Echo done 04/16/2023, ascending aorta enlargement has increased from 4.4cm to 4.5cm on this study. Procedure: A two-dimensional transthoracic echocardiogram with color flow and Doppler was performed. The study quality was technically adequate. Comparison is made with the echocardiogram of 04/16/2023. The patient was in sinus bradycardia with heart rates between 52-61 bpm during the exam. Left Ventricle: The left ventricle is normal in size. There is mild concentric left ventricular hypertrophy. The ejection fraction is estimated to be 55-60%. Left ventricular systolic function appears normal without focal wall motion abnormalities. Right Ventricle: The right ventricle is mildly dilated. The right ventricular systolic function is normal. Atria: The left atrium is moderately dilated. The right atrium is mild to moderately dilated. Mitral Valve: The mitral valve is normal in structure and function. There is trace mitral regurgitation. Aortic Valve: The aortic valve opens well. There is no aortic valve stenosis. There is mild to moderate aortic regurgitation. Tricuspid Valve: The tricuspid valve is not well visualized, but is grossly normal. There is trace tricuspid regurgitation. Pulmonary artery pressures cannot be estimated because of the lack of a measurable TR jet velocity. Pulmonic Valve: The pulmonic valve leaflets are thin and pliable; valve motion is normal. There is trace pulmonic regurgitation. Great Vessels: The aortic root is mildly dilated. The ascending aorta is moderately enlarged. The IVC is of normal diameter and collapses greater than 50% with a sniff. This suggests a low right atrial pressure of 3 mm Hg. Pericardium/ Pleura There is no pericardial effusion. There is no pleural effusion. MMode/2D Measurements & Calculations LVIDd: 5.8 cm LVOT diam: 2.5 cm LVIDs: 3.8 cm Ao root diam: 3.9 cm FS: 34.4 % asc Aorta Diam: 4.5 cm IVSd: 1.1 cm Ao Arch Diam (Prox Trans): 3.5 cm LVPWd: 1.2 cm LV cruz. diameter/BSA (cm/m^2): 2.3 LV sys. diameter/BSA (cm/m^2): 1.5 LA A2 area: 29.3 cm2 RA long axis: 7.9 cm LA A4 area: 36.6 cm2 RA area: 31.3 cm2 LA length (vol): 7.4 cm RA vol: 105.6 ml LA vol: 122.2 ml RA : 41.5 ml/m2 LA vol index: 48.0 ml/m2 IVC diam: 1.4 cm RVD1 (basal): 4.3 cm TAPSE: 2.3 cm Doppler Measurements & Calculations Ao V2 max: 158.3 cm/sec LVOT Max Braeden: 88.3 cm/sec Ao V2 mean: 106.3 cm/sec LV V1 max P.1 mmHg Ao max P.0 mmHg LV V1 VTI: 19.0 cm Ao mean P.3 mmHg YRN(I,D): 2.7 cm2 Ao V2 VTI: 35.6 cm YRN(V,D): 2.8 cm2 sev ratio: 0.53 YRN indexed to BSA (cm^2/m^2): 1.1 AI P1/2t: 769.4 msec AI dec slope: 160.6 cm/sec2 MV E max braeden: 75.4 cm/sec PA V2 max: 68.9 cm/sec MV A max braeden: 85.5 cm/sec PA V2 mean: 53.5 cm/sec MV E/A: 0.88 PA mean P.2 mmHg Med Peak E' Braeden: 5.2 cm/sec PA pr(Accel): 25.9 mmHg E/E' med: 14.4 Lat Peak E' Braeden: 8.9 cm/sec E/E' lat: 8.5 E/e' average: 11.5 MV dec time: 0.34 sec SVLVOT): 95.5 ml Reading Physician:04:29 PM
== END ==
LOC: ECHO 12:36
PROVIDERS: Family Provider Internal Medicine Cardiovascular Disease; PCP Family Medicine; Referring Provider Internal Medicine Cardiovascular Disease; Visit Provider Internal Medicine Cardiovascular Disease
DX: I35.1 Nonrheumatic aortic (valve) insufficiency (principal); I77.810 Thoracic aortic ectasia; I77.89 Other specified disorders of arteries and arterioles
CPT/HCPCS: 93306

== ENCOUNTER → 2025-02-28 12:03 | Outpatient (CLI) | payer MEDICARE, OTHER, SELFPAY ==
[2019-09-17 05:06] VITALS: BMI 35.5
--- NOTE | 2025-02-28 12:04 | DI.CT.S_ITS ---
PROCEDURE: CT CHEST WO CON INDICATIONS: nodules follow up TECHNIQUE: Noncontrast 5 mm thick sections acquired from the pulmonary apices to the posterior costophrenic angles. 1 mm lung window, 5 mm thick coronal and sagittal and 7 mm axial MIP reformats were then acquired. For radiation dose reduction, the following was used: automated exposure control, adjustment of mA and/or kV according to patient size. COMPARISON: [facility], CT, CT LUNG LOW DOSE SCREENING, 11/10/2023, 10:23. [facility], CT, CT CHEST WO CON, 11/13/2022, 10:38. FINDINGS: Image quality: Diagnostic. Lower Neck: No enlarged lymph nodes. Thyroid: No thyroid nodules which require sonographic follow up, per consensus guidelines. Axillae: No enlarged lymph nodes. Chest Wall: Unremarkable. Bones: Unremarkable. Lungs and Pleura: No pneumothorax or pleural effusions. Stable appearance of the 7.5 mm nodule in the right lower lobe as well as the 4 mm nodule more inferomedially in the right lower lobe. Intrapulmonary lymph node in the left lower lobe laterally is also stable. No new focal lesion seen. Heart: Heart size is normal. No pericardial effusion. Thoracic Vessels: The ascending thoracic aorta measures 4.6 cm Mediastinum and Sil: No enlarged lymph nodes. Esophagus: No wall thickening. No hiatal hernia. Upper Abdomen: Visualized upper abdomen solid organs and bowel loops appear normal. IMPRESSION: 1. Stable bilateral sub cm nodules, most likely benign. No new focal lesion seen. 2. Stable aneurysmal dilatation of the ascending aorta measuring 4.6 cm. Dictated by: Singh Pagan M.D. on 02/28/2025 at 19:00 Approved by: Singh Pagan M.D. on 02/28/2025 at 19:06
== END ==
PROVIDERS: Family Provider Internal Medicine Cardiovascular Disease; PCP Family Medicine; Referring Provider Internal Medicine Critical Care Medicine; Visit Provider Internal Medicine Critical Care Medicine
DX: I71.21 Aneurysm of the ascending aorta, without rupture (principal); R91.8 Other nonspecific abnormal finding of lung field
CPT/HCPCS: 71250

== ENCOUNTER → 2025-04-04 07:25 | Outpatient (CLI) | payer MEDICARE, OTHER, SELFPAY ==
[2019-09-17 05:06] VITALS: BMI 35.5
[2025-04-04 08:04] LABS: Hematocrit 48.0 % (41-53); Hemoglobin 16.3 g/dL (13.5-17.5); Mean Corpuscular HGB Conc 34.0 % (30-36); Mean Corpuscular Hemoglobin 32.5 PG (26-34); Mean Corpuscular Volume 95.7 fL (80-100); Platelet Count 259 X10^3/uL (150-400)
[2025-04-04 08:53] LABS: Blood Urea Nitrogen 21 mg/dL (9-20); Calcium 9.0 mg/dL (8.4-10.2); Carbon Dioxide 28 mmol/L (22-32); Chloride 103 mmol/L (98-107); Cholesterol 187 mg/dL (140-199); Estimated Glomerular Filt Rate 57 mL/min (>60); Glucose 98 mg/dL (70-99); HDL Cholesterol 54 mg/dL (40-60); HEMOLYSIS < 15 (0-50); Potassium 4.6 mmol/L (3.4-5.1); Sodium 137 mmol/L (137-145); Triglycerides 82 mg/dL (35-150)
== END ==
PROVIDERS: Family Provider Internal Medicine Cardiovascular Disease; PCP Family Medicine; Referring Provider Internal Medicine Cardiovascular Disease; Visit Provider Internal Medicine Cardiovascular Disease
DX: I10 Essential (primary) hypertension (principal)
CPT/HCPCS: 36415; 80048; 80061; 85027